=== PATIENT | female | born 1960 | race Caucasian/White ===

== ENCOUNTER 2016-06-01 13:20 | Emergency (ER) | payer OTHER ==
[~2016-06-01] VITALS: Ht 170.2 cm; Wt 99.3 kg
[~2016-06-01 13:20] MED LIST: AMLO5TAB4 PO; AZAT50TA10 PO; GABA-586 PO; GLIM4TAB PO; HYDR-2666 PO; INSU100C SQ; INSU100I17 SQ; INSU100I18 SQ; INSU100V13 SQ; METF10002 PO; METO25PO2 MC; METO25TA4 PO; OMEP20CA5 PO; OXYC-323 PO; PROAIR HFA8.5 GM IH; SAXA5TAB PO; VALS160T3 PO
[2016-06-01 13:37] VITALS: BP 150/76
--- NOTE | 2016-06-01 13:50 | RAD ---
Chest, 2 views, 06/01/2016: History: Cough and dizziness Comparison is made to a study from 01/15/2014. The heart size and pulmonary vascularity are normal. No pulmonary infiltrates are seen. There is no evidence of pleural fluid. There is a minimal thoracic scoliosis. A surgical plate and screws is evident in the lower cervical spine. IMPRESSION: No acute cardiopulmonary abnormality is detected.
[2016-06-01] MEDS ORDERED: HYDR115S2 PO (14:23)
--- NOTE | 2016-06-01 14:23 | PHYS DOC ---
Past Medical History Past Medical History: Asthma, Diabetes-Type II, Hypertension, Other Additional Past Medical Histor: lupus Past Surgical History: Cholecystectomy, Tonsillectomy, Other Additional Past Surgical Histo: Spinal fusion C 4-6 Alcohol Use: None Drug Use: None Adult General Chief Complaint Chief Complaint: COUGH HPI HPI Patient is a 55 year old female with history of hypertension,asthma and diabetes type 2 who presents with a productive cough for the last 1 week. Patient states she was started on Levaquin by the PCP on Tuesday last week and she is still taking it. Patient states the PCP could not put her on any prednisone because of her diabetes. She is using her inhaler. She states she has taken Tussionex before with good relief for this cough. Patient denies any fever. Review of Systems Review of Systems Constitutional: Denies fever or chills [] Eyes: Denies change in visual acuity, redness, or eye pain [] HENT: Denies nasal congestion or sore throat [] Respiratory: Productive cough Cardiovascular: No additional information not addressed in HPI [] GI: Denies abdominal pain, nausea, vomiting, bloody stools or diarrhea [] : Denies dysuria or hematuria [] Musculoskeletal: Denies back pain or joint pain [] Integument: Denies rash or skin lesions [] Neurologic: Denies headache, focal weakness or sensory changes [] Endocrine: Denies polyuria or polydipsia [] Current Medications Current Medications Current Medications Medications (Trade) Dose Ordered Sig/Jacinto Start Time Stop Time Status Last Admin Dose Admin Acetaminophen/ Hydrocodone Bitart (Lortab 5/325) 1 tab 1X ONCE 06/01/16 14:30 06/01/16 14:31 Cancel Albuterol/ Ipratropium (Duoneb) 3 ml 1X ONCE 06/01/16 14:30 06/01/16 14:31 Allergies Allergies Allergies Coded Allergies Type Severity Reaction Last Updated Verified lisinopril Allergy Severe WELTS 03/11/14 No Sulfa (Sulfonamide Antibiotics) Allergy Intermediate rash 03/11/14 Yes adhesive Allergy Intermediate skin sensitivity 03/11/14 Yes tetracycline Allergy Intermediate rash 03/11/14 Yes amoxicillin trihydrate Adverse Reaction Intermediate vomiting 03/11/14 Yes potassium clavulanate Adverse Reaction Intermediate vomiting 03/11/14 Yes Uncoded Allergies Type Severity Reaction Last Updated Verified PERFUMES Allergy Intermediate 03/14/14 Physical Exam Physical Exam Constitutional: Well developed, well nourished, no acute distress, non-toxic appearance. [] HENT: Normocephalic, atraumatic, bilateral external ears normal, oropharynx moist, no oral exudates, nose normal. [] Eyes: PERRLA, EOMI, conjunctiva normal, no discharge. [] Neck: Normal range of motion, no tenderness, supple, no stridor. [] Cardiovascular:Heart rate regular rhythm, no murmur [] Lungs & Thorax: Bilateral breath sounds clear to auscultation [] Abdomen: Bowel sounds normal, soft, no tenderness, no masses, no pulsatile masses. [] Skin: Warm, dry, no erythema, no rash. [] Back: No tenderness, no CVA tenderness. [] Extremities: No tenderness, no cyanosis, no clubbing, ROM intact, no edema. [] Neurologic: Alert and oriented X 3, normal motor function, normal sensory function, no focal deficits noted. [] Psychologic: Affect normal, judgement normal, mood normal. [] Current Patient Data Vital Signs Vital Signs Date Time Temp Pulse Resp B/P Pulse Ox O2 Delivery O2 Flow Rate FiO2 06/01/16 13:37 98.2 100 18 96 Room Air 98.2 EKG EKG [] Radiology/Procedures Radiology/Procedures [] Course & Med Decision Making Course & Med Decision Making Pertinent Labs and Imaging studies reviewed. (See chart for details) Patient is in the ED with a productive cough for 1 week. Chest x-ray interpreted by radiologist is negative for any acute findings. This patient is already on Levaquin which i encouraged her to continue taking. She is already receiving breathing treatments at home which i encouraged her to continue. She could not be put on prednisone because she has diabetes. I did put her on Tussionex which she has taken before with relief of her cough. She is follow-up with her own PCP in the next 3-7 days. She is to return to the ED if symptoms worsen. Dragon Disclaimer Dragon Disclaimer This electronic medical record was generated, in whole or in part, using a voice recognition dictation system. Departure Departure Impression: Primary Impression: Acute bronchitis Disposition: 01 HOME, SELF-CARE Condition: STABLE Referrals: JUNG SOLORZANO MD (PCP) Follow-up with your own doctor in 3-7 days Patient Instructions: Acute Bronchitis, [id number] Additional Instructions: You were seen for acute bronchitis, continue taking Levaquin until it is finished. Continue the breathing treatments. Take the prescribed cough syrup as needed. Come back to the emergency room at any point symptoms worsen. Scripts Hydrocodone/Chlorphen Polis (Tussionex Pennkinetic Susp)480 Ml Spring.er.12h5 Ml PO BID #100 ML Prov:AGGIE FREEMAN APRN 06/01/16 Problem Qualifiers Primary Impression: Acute bronchitis Bronchitis organism: unspecified organism Qualified Code: J20.9 - Acute bronchitis, unspecified AGGIE FREEMAN CYCLE SPECIALIST Jun 01, 2016 14:23
[2016-06-01] MEDS ORDERED: IPRATRPIUM/ALBUTEROL 0.5/2.5MG 3 ML NEBU. NEB ONE (14:30)
[2016-06-01] MEDS ORDERED: HYDROCODONE/APAP 5/325MG TABLET. PO ONE (14:30)
== END 2016-06-01 14:44 | disposition home or self-care (01) ==
LOC: ER 13:20
DX: J20.9 Acute bronchitis, unspecified (principal); I10 Essential (primary) hypertension; J45.909 Unspecified asthma, uncomplicated; E11.9 Type 2 diabetes mellitus without complications; Z88.0 Allergy status to penicillin; Z88.1 Allergy status to other antibiotic agents; Z88.2 Allergy status to sulfonamides; Z88.8 Allergy status to other drugs, medicaments and biological substances; Z91.048 Other nonmedicinal substance allergy status
CPT/HCPCS: 71020; 94250; 94640; 99284; J7620

== ENCOUNTER → 2016-08-17 | Outpatient (CLI) | payer OTHER ==
[~2016-08-17] MED LIST changes: +HYDR115S2 PO
[2016-08-17 13:49] LABS: BASO # 0.1 x10^3/uL (0.0-0.2); BASO % 2 % (0-3); EOS % 7 % (0-3); HEMATOCRIT 38.5 % (36.0-47.0); HEMOGLOBIN 12.3 g/dL (12.0-15.5); LYMPH # 1.4 x10^3/uL (1.0-4.8); LYMPH % 14 % (24-48); MEAN CORPUSCULAR HEMOGLOBIN 25 pg (25-35); MEAN CORPUSCULAR HGB CONC 32 g/dL (31-37); MEAN CORPUSCULAR VOLUME 78 fL (79-100); MONO % 8 % (0-9); NEUT % 69 % (31-73); PLATELET COUNT 459 x10^3/uL (140-400); RED BLOOD COUNT 4.92 x10^6/uL (3.50-5.40); RED CELL DISTRIBUTION WIDTH 17.5 % (11.5-14.5); WHITE BLOOD COUNT 9.9 x10^3/uL (4.0-11.0)
[2016-08-17 17:08] LABS: ALBUMIN 3.5 g/dL (3.4-5.0); ALBUMIN/GLOBULIN RATIO 0.8 (1.0-1.7); CALCIUM 9.1 mg/dL (8.5-10.1); CREATININE 0.8 mg/dL (0.6-1.0); GFR 74.5; TOTAL BILIRUBIN 0.3 mg/dL (0.2-1.0); TOTAL PROTEIN 7.8 g/dL (6.4-8.2)
== END | disposition home or self-care (01) ==
LOC: LAB 12:58
PROVIDERS: ATTEND Internal Medicine Rheumatology
DX: M79.3 Panniculitis, unspecified (principal)
CPT/HCPCS: 36415; 80053; 85027

== ENCOUNTER → 2016-08-17 | Outpatient (CLI) | payer OTHER | END | disposition home or self-care (01) | LOC: LAB 11:22 | PROVIDERS: ATTEND Clinical Nurse Specialist Medical-Surgical | DX: E11.65 Type 2 diabetes mellitus with hyperglycemia (principal) | CPT/HCPCS: 36415; 84443 ==

== ENCOUNTER → 2016-09-29 | Outpatient (CLI) | payer OTHER ==
[~2016-09-29] MED LIST changes: +METF-620 PO; -METF10002 PO
[2016-09-29 10:54] LABS: FREE T4 0.92 ng/dL (0.76-1.46)
[2016-09-29 19:17] LABS: THYROPEROXIDASE ANTIBODY 76 IU/mL (0-34)
== END | disposition home or self-care (01) ==
LOC: LAB 09:49
PROVIDERS: ATTEND Internal Medicine Endocrinology, Diabetes & Metabolism
DX: R94.6 Abnormal results of thyroid function studies (principal)
CPT/HCPCS: 36415; 84432; 84439; 84443; 86376

== ENCOUNTER 2016-11-11 15:42 | Emergency (ER) | payer OTHER ==
[~2016-11-11] VITALS: Ht 172.7 cm; Wt 99.3 kg
[~2016-11-11 15:42] MED LIST changes: -AZAT50TA10 PO; +AZAT50TA20 PO; -HYDR-2666 PO; +HYDR-2758 PO
--- NOTE | 2016-11-11 16:07 | PHYS DOC ---
Past Medical History Past Medical History: Asthma, Diabetes-Type II, Hypertension, Other Additional Past Medical Histor: lupus Past Surgical History: Cholecystectomy, Tonsillectomy, Other Additional Past Surgical Histo: Spinal fusion C 4-6 Alcohol Use: None Drug Use: None Adult General Chief Complaint Chief Complaint: FLANK PAIN [facility] HPI Patient is a 55 year old female who presents with 2-3 week history of right flank pain gradual onset intermittent mild severity radiating to the right groin , no nausea or vomiting, occasional diarrhea, bloody patient attributes that to metformin. Denies chest pain shortness of breath or fever. Denies any dysuria or frequency. Does report a history of lupus nephritis however no history of renal stones. Review of Systems Review of Systems Constitutional: Denies fever or chills [] Eyes: Denies change in visual acuity, redness, or eye pain [] HENT: Denies nasal congestion or sore throat [] Respiratory: Denies cough or shortness of breath [] Cardiovascular: No additional information not addressed in HPI [] GI: Denies abdominal pain, nausea, vomiting, bloody stools or diarrhea [] : Denies dysuria or hematuria [] Musculoskeletal: Denies back pain or joint pain [] Integument: Denies rash or skin lesions [] Neurologic: Denies headache, focal weakness or sensory changes [] Endocrine: Denies polyuria or polydipsia [ All systems negative except noted in the history of present illness.] Current Medications Current Medications Current Medications Medications (Trade) Dose Ordered Sig/Jacinto Start Time Stop Time Status Last Admin Dose Admin Sodium Chloride 500 ml @ 500 mls/hr 1X ONCE 11/11/16 16:15 11/11/16 17:14 DC 11/11/16 16:30 500 MLS/HR Allergies Allergies Allergies Coded Allergies Type Severity Reaction Last Updated Verified lisinopril Allergy Severe WELTS 03/11/14 No Sulfa (Sulfonamide Antibiotics) Allergy Intermediate rash 03/11/14 Yes adhesive Allergy Intermediate skin sensitivity 03/11/14 Yes tetracycline Allergy Intermediate rash 03/11/14 Yes amoxicillin trihydrate Adverse Reaction Intermediate vomiting 03/11/14 Yes potassium clavulanate Adverse Reaction Intermediate vomiting 03/11/14 Yes Uncoded Allergies Type Severity Reaction Last Updated Verified PERFUMES Allergy Intermediate 03/14/14 Physical Exam Physical Exam Constitutional: Well developed, well nourished, no acute distress, non-toxic appearance. [] HENT: Normocephalic, atraumatic, bilateral external ears normal, oropharynx moist, no oral exudates, nose normal. [] Eyes: PERRLA, EOMI, conjunctiva normal, no discharge. [] Neck: Normal range of motion, no tenderness, supple, no stridor. [] Cardiovascular:Heart rate regular rhythm, no murmur [] Lungs & Thorax: Bilateral breath sounds clear to auscultation [] Abdomen: Bowel sounds normal, soft, no tenderness, no masses, no pulsatile masses. [] Skin: Warm, dry, no erythema, no rash. [] Back: No tenderness, no CVA tenderness. [] Extremities: No tenderness, no cyanosis, no clubbing, ROM intact, no edema. [] Neurologic: Alert and oriented X 3, normal motor function, normal sensory function, no focal deficits noted. [] Psychologic: Affect normal, judgement normal, mood normal. [] Current Patient Data Vital Signs Vital Signs Date Time Temp Pulse Resp B/P (MAP) Pulse Ox O2 Delivery O2 Flow Rate FiO2 11/11/16 16:00 98.3 94 20 143/84 (103) 96 Room Air 98.3 Lab Values Laboratory Tests Test 11/11/16 15:50 11/11/16 16:05 Urine Color Yellow Urine Clarity Clear Urine pH 5.5 Urine Specific [place] 1.020 Urine Protein Negative mg/dL (NEG-TRACE) Urine Glucose (UA) Negative mg/dL (NEG) Urine Ketones (Stick) Negative mg/dL (NEG) Urine Blood Negative (NEG) Urine Nitrite Negative (NEG) Urine Bilirubin Negative (NEG) Urine Urobilinogen Dipstick 0.2 mg/dL (0.2 mg/dL) Urine Leukocyte Esterase Small (NEG) Urine RBC 0 /HPF (0-2) Urine WBC 5-10 /HPF (0-4) Urine Squamous Epithelial Cells Occ /LPF Urine Bacteria Moderate /HPF (0-FEW) Urine Mucus Mod /LPF White Blood Count 10.2 x10^3/uL (4.0-11.0) Red Blood Count 5.14 x10^6/uL (3.50-5.40) Hemoglobin 12.7 g/dL (12.0-15.5) Hematocrit 39.3 % (36.0-47.0) Mean Corpuscular Volume 76 fL (79-100) L Mean Corpuscular Hemoglobin 25 pg (25-35) Mean Corpuscular Hemoglobin Concent 32 g/dL (31-37) Red Cell Distribution Width 17.0 % (11.5-14.5) H Platelet Count 490 x10^3/uL (140-400) H Neutrophils (%) (Auto) 74 % (31-73) H Lymphocytes (%) (Auto) 12 % (24-48) L Monocytes (%) (Auto) 7 % (0-9) Eosinophils (%) (Auto) 6 % (0-3) H Basophils (%) (Auto) 0 % (0-3) Neutrophils # (Auto) 7.6 x10^3uL (1.8-7.7) Lymphocytes # (Auto) 1.3 x10^3/uL (1.0-4.8) Monocytes # (Auto) 0.7 x10^3/uL (0.0-1.1) Eosinophils # (Auto) 0.7 x10^3/uL (0.0-0.7) Basophils # (Auto) 0.0 x10^3/uL (0.0-0.2) Sodium Level 138 mmol/L (136-145) Potassium Level 3.6 mmol/L (3.5-5.1) Chloride Level 103 mmol/L (98-107) Carbon Dioxide Level 28 mmol/L (21-32) Anion Gap 7 (6-14) Blood Urea Nitrogen 8 mg/dL (7-20) Creatinine 0.8 mg/dL (0.6-1.0) Estimated GFR (Cockcroft-Gault) 74.5 BUN/Creatinine Ratio 10 (6-20) Glucose Level 151 mg/dL (70-99) H Calcium Level 9.3 mg/dL (8.5-10.1) Total Bilirubin 0.2 mg/dL (0.2-1.0) Aspartate Amino Transferase (AST) 27 U/L (15-37) Alanine Aminotransferase (ALT) 45 U/L (14-59) Alkaline Phosphatase 117 U/L (46-116) H Total Protein 8.3 g/dL (6.4-8.2) H Albumin 3.6 g/dL (3.4-5.0) Albumin/Globulin Ratio 0.8 (1.0-1.7) L Laboratory Tests 11/11/16 16:05 Laboratory Tests 11/11/16 16:05 EKG EKG [] Radiology/Procedures Radiology/Procedures CT scan abdomen and pelvis [negative for acute abnormality radiology report reviewed] Course & Med Decision Making Course & Med Decision Making Pertinent Labs and Imaging studies reviewed. (See chart for details) Plan of care will be IV fluids checking labs, UA, and a CT scan abdomen and pelvis to exclude renal pathology including kidney stones. UA consistent with UTI kidney function okay but sugar well controlled CT scan unremarkable patient stable for dismissal with antibiotics for UTI. Discussed findings with the patient she is agreeable happy to go home. [] Dragon Disclaimer Dragon Disclaimer This electronic medical record was generated, in whole or in part, using a voice recognition dictation system. Departure Departure Referrals: JUNG SOLORZANO MD (PCP) IVY ADAME MD Nov 11, 2016 16:07
[2016-11-11 16:15] LABS: BASO % 0 % (0-3); EOS % 6 % (0-3); HEMATOCRIT 39.3 % (36.0-47.0); HEMOGLOBIN 12.7 g/dL (12.0-15.5); LYMPH # 1.3 x10^3/uL (1.0-4.8); LYMPH % 12 % (24-48); MEAN CORPUSCULAR HEMOGLOBIN 25 pg (25-35); MEAN CORPUSCULAR HGB CONC 32 g/dL (31-37); MEAN CORPUSCULAR VOLUME 76 fL (79-100); MONO % 7 % (0-9); NEUT % 74 % (31-73); PLATELET COUNT 490 x10^3/uL (140-400); RED BLOOD COUNT 5.14 x10^6/uL (3.50-5.40); WHITE BLOOD COUNT 10.2 x10^3/uL (4.0-11.0)
[2016-11-11] MEDS ORDERED: IV NORMAL SALINE 500ML BAG 500 ML IV ONE (16:15)
[2016-11-11 16:18] LABS: BILIRUBIN,URINE NEGATIVE (NEG); GLUCOSE,URINE NEGATIVE (NEG); NITRITE,URINE NEGATIVE (NEG); PH,URINE 5.5; PROTEIN,URINE NEGATIVE (NEG-TRACE); UROBILINOGEN,URINE 0.2 mg/dL (0.2 mg/dL)
[2016-11-11 16:30] LABS: CALCIUM 9.3 mg/dL (8.5-10.1); CREATININE 0.8 mg/dL (0.6-1.0); GFR 74.5; POTASSIUM 3.6 mmol/L (3.5-5.1)
[2016-11-11 16:31] LABS: BACTERIA,URINE MODERATE /HPF (0-FEW); RBC,URINE 0 /HPF (0-2); SQUAMOUS EPITHELIAL CELL,UR OCC /LPF
[2016-11-11 16:36] LABS: ALBUMIN 3.6 g/dL (3.4-5.0); ALBUMIN/GLOBULIN RATIO 0.8 (1.0-1.7); TOTAL BILIRUBIN 0.2 mg/dL (0.2-1.0); TOTAL PROTEIN 8.3 g/dL (6.4-8.2)
--- NOTE | 2016-11-11 16:55 | RAD ---
CT scan of the abdomen and pelvis without contrast 11/11/2016 Clinical history: Severe right flank pain for 2 to 3 weeks. Technique: Unenhanced, contiguous, 2 mm axial sections were obtained through the abdomen and pelvis. Findings: Comparison study is dated 03/06/2009. Images through the lung bases demonstrate a moderate-sized sliding hiatal hernia. The liver parenchyma has a decreased attenuation consistent with mild fatty infiltration. The liver is mildly enlarged measuring 20 cm in length. The spleen, pancreas and adrenal glands are within normal limits. No renal or ureteral calculus is seen. There is no evidence of obstruction of either collecting system. Mild to moderate scattered atherosclerotic plaque formation is seen involving the abdominal aorta. The abdominal aorta tapers normally. Surgical clips are seen within the gallbladder fossa consistent with a cholecystectomy. No free fluid or free air is seen within the abdomen. There is no evidence of bowel obstruction. The appendix is well visualized and is within normal limits. Slightly prominent retroperitoneal lymph nodes are seen which have decreased in size and number since the previous examination. Images through the pelvis demonstrate the urinary bladder distended with urine. Scattered diverticula are seen involving the sigmoid colon. No inflammatory changes are seen in the adjacent fat. No free fluid is seen. Minimal S shaped curvature of the thoracolumbar spine is seen. Degenerative changes are seen involving the thoracic and lumbar spine and both hips. Impression: No acute abnormality is seen.
[2016-11-11] MEDS ORDERED: NITR100C62 PO (17:21)
[2016-11-11 17:30] VITALS: BP 107/75
== END 2016-11-11 17:30 | disposition home or self-care (01) ==
LOC: ER 15:42
DX: R10.30 Lower abdominal pain, unspecified (principal); R19.7 Diarrhea, unspecified; I10 Essential (primary) hypertension; J45.909 Unspecified asthma, uncomplicated; E11.9 Type 2 diabetes mellitus without complications; M32.9 Systemic lupus erythematosus, unspecified; Z98.1 Arthrodesis status; Z90.49 Acquired absence of other specified parts of digestive tract; Z88.2 Allergy status to sulfonamides; Z88.1 Allergy status to other antibiotic agents; Z88.8 Allergy status to other drugs, medicaments and biological substances; Z91.048 Other nonmedicinal substance allergy status
CPT/HCPCS: 36415; 74176; 80053; 81001; 85027; 87086; 96360; 99285; J7040

== ENCOUNTER 2017-02-01 10:16 | Emergency (ER) | payer OTHER ==
[~2017-02-01] VITALS: Ht 170.2 cm; Wt 99.3 kg
[~2017-02-01 10:16] MED LIST changes: +NITR100C62 PO
[2017-02-01 10:47] VITALS: BP 121/83
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
[2017-02-01] MEDS ORDERED: IPRATRPIUM/ALBUTEROL 0.5/2.5MG 3 ML NEBU. NEB ONE (11:45)
[2017-02-01] MEDS ORDERED: predniSONE 10 MG TABLET PO ONE (12:30)
[2017-02-01] MEDS ORDERED: ALBUTEROL SULFATE 2.5 MG/3 ML NEBU. NEB ONE (12:30)
[2017-02-01] MEDS ORDERED: PRED20TA PO (13:29)
[2017-02-01] MEDS ORDERED: HYDR5SUS PO (13:29)
[2017-02-01] MEDS ORDERED: AZIT250T PO (13:29)
== END 2017-02-01 13:37 | disposition home or self-care (01) ==
LOC: ER 10:16
DX: J20.9 Acute bronchitis, unspecified (principal); J32.9 Chronic sinusitis, unspecified; Z88.2 Allergy status to sulfonamides; Z88.8 Allergy status to other drugs, medicaments and biological substances; Z88.1 Allergy status to other antibiotic agents; Z91.048 Other nonmedicinal substance allergy status; Z91.09 Other allergy status, other than to drugs and biological substances; J45.909 Unspecified asthma, uncomplicated; E11.9 Type 2 diabetes mellitus without complications; I10 Essential (primary) hypertension; E03.9 Hypothyroidism, unspecified
CPT/HCPCS: 94250; 94640; 99284; J7512; J7613; J7620

== ENCOUNTER → 2018-01-06 | Outpatient (CLI) | payer OTHER ==
[2018-01-06 10:24] LABS: THYROID STIM HORMONE (TSH) 3.657 uIU/mL (0.358-3.74)
[2018-01-06 10:24] LABS: FREE T4 1.02 ng/dL (0.76-1.46)
== END | disposition home or self-care (01) ==
LOC: LAB 08:50
DX: E03.9 Hypothyroidism, unspecified (principal); I10 Essential (primary) hypertension; E11.9 Type 2 diabetes mellitus without complications; E78.5 Hyperlipidemia, unspecified; Z79.4 Long term (current) use of insulin; Z87.39 Personal history of other diseases of the musculoskeletal system and connective tissue; Z90.49 Acquired absence of other specified parts of digestive tract; Z88.0 Allergy status to penicillin; Z88.1 Allergy status to other antibiotic agents; Z88.2 Allergy status to sulfonamides
CPT/HCPCS: 36415; 84439; 84443

== ENCOUNTER → 2018-04-27 | Outpatient (CLI) | payer OTHER ==
[~2018-04-27] MED LIST changes: +AZIT250T PO; -HYDR-2758 PO; +HYDR-2761 PO; +HYDR5SUS PO; -METF-620 PO; +METF10007 PO; -OXYC-323 PO; +OXYC1TAB15 PO; +PRED20TA PO
[2018-04-27 16:00] LABS: BASO # 0.3 x10^3/uL (0.0-0.2); BASO % 3 % (0-3); EOS # 0.7 x10^3/uL (0.0-0.7); EOS % 6 % (0-3); HEMOGLOBIN 13.9 g/dL (12.0-15.5); LYMPH # 1.6 x10^3/uL (1.0-4.8); LYMPH % 14 % (24-48); MEAN CORPUSCULAR HEMOGLOBIN 27 pg (25-35); MEAN CORPUSCULAR HGB CONC 33 g/dL (31-37); MEAN CORPUSCULAR VOLUME 80 fL (79-100); MONO # 0.8 x10^3/uL (0.0-1.1); MONO % 7 % (0-9); NEUT # 8.5 x10^3uL (1.8-7.7); NEUT % 71 % (31-73); PLATELET COUNT 575 x10^3/uL (140-400); RED BLOOD COUNT 5.24 x10^6/uL (3.50-5.40); RED CELL DISTRIBUTION WIDTH 16.6 % (11.5-14.5); WHITE BLOOD COUNT 11.9 x10^3/uL (4.0-11.0)
[2018-04-27 16:15] LABS: ALBUMIN 3.7 g/dL (3.4-5.0); ALBUMIN/GLOBULIN RATIO 0.8 (1.0-1.7); CALCIUM 9.3 mg/dL (8.5-10.1); CREATININE 1.2 mg/dL (0.6-1.0); GFR 46.3; POTASSIUM 4.2 mmol/L (3.5-5.1); TOTAL BILIRUBIN 0.2 mg/dL (0.2-1.0); TOTAL PROTEIN 8.3 g/dL (6.4-8.2)
[2018-04-27 16:20] LABS: CHOLESTEROL/HDL RATIO 5.1
[2018-04-28 00:11] LABS: HEMOGLOBIN A1C 8.2 % (4.8-5.6)
== END | disposition home or self-care (01) ==
LOC: LAB 15:31
PROVIDERS: ATTEND Internal Medicine Endocrinology, Diabetes & Metabolism
DX: E11.9 Type 2 diabetes mellitus without complications (principal)
CPT/HCPCS: 36415; 80053; 80061; 83036; 84443; 84681; 85025; 85651

== ENCOUNTER 2018-07-07 11:40 | Day surgery (SDC) | payer OTHER ==
[~2018-07-07 11:40] MED LIST changes: +ALBU2.5V8 IH; +CHONDROIT-SOD-HYALURONATE KIT. ONE; +CIPROFLOXACIN 0.3% OPHTH SOLUTION 5ML BOTTLE. OS ONE; -GABA-586 PO; +GABA300C18 PO; +HYDROmorphone 2 MG/ML VIAL IV PRN; +INSU100I13 SQ; +IV RINGERS,LACTATED 1000ML 1,000 ML IV SCH; +LIDOCAINE 1% PF 2 ML VIAL. ID PRN; +LIDOCAINE 1% PF 2 ML VIAL. ONE; +LIDOCAINE 2% JELLY 6ML IN APPLICATOR. MM SCH; +METO100T7 PO; +MORPHINE SULFATE 4 MG/ML VIAL. IV PRN; +NEO/POLYMYX/DEXAMETH OPHTH OINTMENT 3.5GM TUBE. ONE; +ONDANSETRON PF 4 MG/2 ML VIAL. IV PRN; +PRAV40TA2 PO; -PROAIR HFA8.5 GM IH; +PROCHLORPERAZINE 10 MG/2 ML VIAL. IV PRN; +PROPARACAINE 0.5% OPHTH SOLUTION 15ML BOTTLE. OS ONE; +fentaNYL PF VIAL 100 MCG/2 ML VIAL IV PRN
[2018-07-07] MEDS: CYCLOPENTOLATE 1% OPTH SOLUTION 2ML BOTTLE. OS SCH ×3 (12:41→12:51)
[2018-07-07] MEDS: PHENYLEPHRINE 10% OPHTH SOLUTION 5ML BOTTLE. OS SCH ×3 (12:41→12:51)
[2018-07-07] MEDS ORDERED: MIDAZOLAM HCL/PF 2 MG/2 ML VIAL. ONE (13:38)
[2018-07-07] MEDS ORDERED: MIDAZOLAM HCL/PF 2 MG/2 ML VIAL. IV ONE (13:45)
[2018-07-07 14:27] VITALS: BP 130/81
--- NOTE | 2018-07-07 15:12 | OP ---
DATE OF SURGERY: 07/07/2018 PREOPERATIVE DIAGNOSIS: Presenile cataract, left eye. POSTOPERATIVE DIAGNOSIS: Presenile cataract, left eye. PROCEDURE: Phacoemulsification with posterior chamber lens implant, left eye. ANESTHESIA: Topical with MAC. DESCRIPTION OF PROCEDURE: The patient's dilating and anesthetic drops were placed in the outpatient holding area and the [place] balloon cuff were used for about 15 minutes. The patient was then brought to the OR and positioned and the left eye was prepped and draped in the usual sterile manner for an intraocular procedure. A lid speculum was placed between the eyelids and the operating microscope was brought into position. A paracentesis incision was made inferior temporally and 1% lidocaine injected in the anterior chamber. This was followed by an injection of Viscoat and then the primary 2.4 mm incision was made temporally. A capsulorrhexis was made about the dilated pupillary border and the lens nucleus hydrodissected. The lens nucleus was then easily phacoemulsified using the phaco hand piece. The cortical cleanup was done with the I/A handpiece. Provisc was then used to insufflate the bag and form the anterior chamber and a posterior chamber lens inserted into the bag without difficulty. The Provisc was aspirated with the I/A handpiece and the eye was then pressurized and the primary incision hydrated with a 30-gauge cannula. The wound was checked for leaks and there were none. The speculum was removed and Maxitrol ointment instilled in the conjunctival sac and the eye was shielded. The patient was taken to the recovery room in satisfactory condition. There were no complications. I will talk to the patient tomorrow by phone and see her in 3 days for followup. K NELL DOUGLAS MD DR: STEPHON/olivia JOB#: [id number] / [id number]
== END 2018-07-07 15:16 | disposition home or self-care (01) ==
LOC: SURG 11:40
PROVIDERS: ATTEND Ophthalmology
DX: H26.01 Infantile and juvenile cortical, lamellar, or zonular cataract (principal); Z88.2 Allergy status to sulfonamides; Z88.1 Allergy status to other antibiotic agents; Z88.8 Allergy status to other drugs, medicaments and biological substances; Z98.890 Other specified postprocedural states
CPT/HCPCS: 66984; 82962; C1780; J0171; J2250

== ENCOUNTER 2018-07-21 11:50 | Day surgery (SDC) | payer OTHER ==
[~2018-07-21 11:50] MED LIST changes: +CIPROFLOXACIN 0.3% OPHTH SOLUTION 5ML BOTTLE. OD ONE; -CIPROFLOXACIN 0.3% OPHTH SOLUTION 5ML BOTTLE. OS ONE; +PROPARACAINE 0.5% OPHTH SOLUTION 15ML BOTTLE. OD ONE; -PROPARACAINE 0.5% OPHTH SOLUTION 15ML BOTTLE. OS ONE
[2018-07-21] MEDS: PHENYLEPHRINE 10% OPHTH SOLUTION 5ML BOTTLE. OD SCH ×3 (12:46→12:56)
[2018-07-21] MEDS: CYCLOPENTOLATE 1% OPTH SOLUTION 2ML BOTTLE. OD SCH ×3 (12:59→13:11)
[2018-07-21] MEDS ORDERED: MIDAZOLAM HCL/PF 2 MG/2 ML VIAL. ONE (13:26)
[2018-07-21 14:30] VITALS: BP 136/78
--- NOTE | 2018-07-21 15:23 | OP ---
DATE OF SURGERY: 07/21/2018 PREOPERATIVE DIAGNOSIS: Senile cataract, right eye. POSTOPERATIVE DIAGNOSIS: Senile cataract, right eye. PROCEDURE: Phacoemulsification with posterior chamber lens implant, right eye. ANESTHESIA: Topical with MAC. DESCRIPTION OF PROCEDURE: The patient's dilating and anesthetic drops were applied in the outpatient department and the [place] balloon cuff was used for about 10-15 minutes. The patient was then brought to the operating room, positioned on the table and the right eye was prepped and draped in the usual sterile manner for an intraocular procedure. The operating microscope was brought into position and a paracentesis incision was made superotemporally. A 1% lidocaine was injected into the anterior chamber followed by Viscoat. The primary 2.4-mm incision was made temporally and a capsulorrhexis performed without difficulty. The lens nucleus was hydrodissected and then phacoemulsified using the phaco handpiece. The cortical material was cleaned up with the I/A handpiece. Provisc was used to insufflate the bag and a posterior chamber lens placed into the bag without difficulty. The viscoelastic was aspirated with the I/A handpiece and the wound was hydrated and the eye pressurized. The wound was checked for leaks and there were none. The speculum and drape were removed and Maxitrol ointment was instilled in the conjunctival sac and the eye was shielded. The patient was taken to the recovery room in satisfactory condition. There were no complications. I will see the patient in 3 days in my office. K NELL DOUGLAS MD DR: STEPHON/olivia JOB#: [id number] / [id number]
== END 2018-07-21 14:47 | disposition home or self-care (01) ==
LOC: SURG 11:50
PROVIDERS: ATTEND Ophthalmology
DX: E11.36 Type 2 diabetes mellitus with diabetic cataract (principal); H25.11 Age-related nuclear cataract, right eye; I10 Essential (primary) hypertension; E03.9 Hypothyroidism, unspecified; J45.909 Unspecified asthma, uncomplicated; Z98.890 Other specified postprocedural states; Z72.89 Other problems related to lifestyle; Z79.4 Long term (current) use of insulin; Z79.899 Other long term (current) drug therapy; Z88.2 Allergy status to sulfonamides; Z88.1 Allergy status to other antibiotic agents; Z88.8 Allergy status to other drugs, medicaments and biological substances; Z98.42 Cataract extraction status, left eye; Z96.1 Presence of intraocular lens
CPT/HCPCS: 66984; 82962; C1780; J0171; J2250

== ENCOUNTER 2019-06-25 15:14 | Inpatient (IN) | payer OTHER ==
[~2019-06-25] VITALS: Ht 167.6 cm; Wt 97.5 kg
[~2019-06-25 15:14] MED LIST changes: -CHONDROIT-SOD-HYALURONATE KIT. ONE; -CIPROFLOXACIN 0.3% OPHTH SOLUTION 5ML BOTTLE. OD ONE; -HYDROmorphone 2 MG/ML VIAL IV PRN; -IV RINGERS,LACTATED 1000ML 1,000 ML IV SCH; -LIDOCAINE 1% PF 2 ML VIAL. ID PRN; -LIDOCAINE 1% PF 2 ML VIAL. ONE; -LIDOCAINE 2% JELLY 6ML IN APPLICATOR. MM SCH; -MORPHINE SULFATE 4 MG/ML VIAL. IV PRN; -NEO/POLYMYX/DEXAMETH OPHTH OINTMENT 3.5GM TUBE. ONE; -ONDANSETRON PF 4 MG/2 ML VIAL. IV PRN; -PROCHLORPERAZINE 10 MG/2 ML VIAL. IV PRN; -PROPARACAINE 0.5% OPHTH SOLUTION 15ML BOTTLE. OD ONE; -fentaNYL PF VIAL 100 MCG/2 ML VIAL IV PRN
[2019-06-25] MEDS ORDERED: IV NORMAL SALINE 1000ML BAG 1,000 ML IV SCH (17:27)
[2019-06-25 17:30] LABS: BILIRUBIN,URINE NEGATIVE (NEG); CLARITY,URINE CLEAR; COLOR,URINE YELLOW; NITRITE,URINE NEGATIVE (NEG); PH,URINE 6.5; PROTEIN,URINE NEGATIVE (NEG-TRACE); UROBILINOGEN,URINE 0.2 mg/dL (0.2 mg/dL)
[2019-06-25] MEDS ORDERED: fentaNYL PF VIAL 100 MCG/2 ML VIAL IV ONE (17:30)
--- NOTE | 2019-06-25 17:33 | PHYS DOC ---
Past Medical History Past Medical History: Asthma, Diabetes-Type II, Hypertension, Hypothyroid, Other Additional Past Medical Histor: lupus (MARCUS SHIELDS APRN) Past Surgical History: Cholecystectomy, Oophorectomy, Tonsillectomy, Other Additional Past Surgical Histo: Spinal fusion C 4-6 (MARCUS SHIELDS APRN) Alcohol Use: Rarely Drug Use: None (MARCUS SHIELDS APRN) Adult General Chief Complaint Chief Complaint: FLANK PAIN HPI HPI Patient is a 58 year old Female who presents with bilateral lower Darryl pain and lower back pain 1 week. States is a cramping feeling she rates as 7 out of 10. She was sent over by Dr. Del Toro for evaluation of diverticulitis or a kidney stone. Patient denies nausea, vomiting, fever, chest pain, shortness of air, numbness or tingling, visual changes, weakness, headache, dizziness. She does state about 3 months ago she was eating is out on the tines off of a plastic fork broke off and she swallowed it. She states she does have occasional diarrhea. She denies seeing any blood in her stools. (MARCUS SHIELDS [employer]) Review of Systems Review of Systems GI: abdominal pain, denies nausea, vomiting, bloody stools. + diarrhea [] Musculoskeletal: bilateral lower back pain or joint pain [] All other systems were reviewed and found to be within normal limits, except as documented in this note. (MARCUS SHIELDS APRN) Current Medications Current Medications Current Medications Medications (Trade) Dose Ordered Sig/Jacinto Start Time Stop Time Status Last Admin Dose Admin Fentanyl Citrate (Fentanyl 2ml Vial) 50 mcg 1X ONCE 06/25/19 18:15 06/25/19 18:16 DC 06/25/19 18:56 50 MCG Info (CONTRAST GIVEN -- Rx MONITORING) 1 each PRN DAILY PRN 06/25/19 18:30 06/27/19 15:37 DC Iohexol (Omnipaque 300 Mg/ml) 75 ml 1X ONCE 06/25/19 18:45 06/25/19 18:46 DC 06/25/19 18:35 75 ML Iohexol (Omnipaque 350 Mg/ml) 75 ml 1X ONCE 06/25/19 18:30 06/25/19 18:31 DC Sodium Chloride 1,000 ml @ 1,000 mls/hr 1X ONCE 06/25/19 18:15 06/25/19 19:14 DC 06/25/19 19:29 1,000 MLS/HR (LONNIE RENAE MD) Allergies Allergies Allergies Coded Allergies Type Severity Reaction Last Updated Verified lisinopril Allergy Severe WELTS 07/07/18 No Sulfa (Sulfonamide Antibiotics) Allergy Intermediate rash 07/07/18 Yes adhesive Allergy Intermediate skin sensitivity 07/07/18 Yes tetracycline Allergy Intermediate rash 07/07/18 Yes amoxicillin trihydrate Adverse Reaction Intermediate vomiting 07/07/18 Yes potassium clavulanate Adverse Reaction Intermediate vomiting 07/07/18 Yes Uncoded Allergies Type Severity Reaction Last Updated Verified PERFUMES Allergy Intermediate ASTHMA ATTACK (AND ANY CHEMICALS CLEANING PRODUCTS) 06/05/18 (LONNIE RENAE MD) Physical Exam Physical Exam Constitutional: Well developed, well nourished, no acute distress, non-toxic ap pearance. [] HENT: Normocephalic, atraumatic, bilateral external ears normal, oropharynx moist, no oral exudates, nose normal. [] Eyes: PERRLA, EOMI, conjunctiva normal, no discharge. [] Neck: Normal range of motion, no tenderness, supple, no stridor. [] Cardiovascular:Heart rate regular rhythm, no murmur [] Lungs & Thorax: Bilateral breath sounds clear to auscultation [] Abdomen: Bowel sounds normal, soft, left and right lower tenderness, no masses, no pulsatile masses. [] Skin: Warm, dry, no erythema, no rash. [] Back: No tenderness, no CVA tenderness. [] Extremities: No tenderness, no cyanosis, no clubbing, ROM intact, no edema. [] Neurologic: Alert and oriented X 3, normal motor function, normal sensory function, no focal deficits noted. [] Psychologic: Affect normal, judgement normal, mood normal. [] (MARCUS SHIELDS APRN) Current Patient Data Vital Signs Vital Signs Date Time Temp Pulse Resp B/P (MAP) Pulse Ox O2 Delivery O2 Flow Rate FiO2 06/25/19 19:30 18 95 Room Air 06/25/19 19:25 80 119/83 (95) 06/25/19 16:40 98.7 98.7 (LONNIE RENAE MD) Lab Values Laboratory Tests Test 06/25/19 16:40 06/25/19 17:20 Urine Color Yellow Urine Clarity Clear Urine pH 6.5 Urine Specific [place] 1.015 Urine Protein Negative mg/dL (NEG-TRACE) Urine Glucose (UA) 100 mg/dL (NEG) Urine Ketones (Stick) Negative mg/dL (NEG) Urine Blood Negative (NEG) Urine Nitrite Negative (NEG) Urine Bilirubin Negative (NEG) Urine Urobilinogen Dipstick 0.2 mg/dL (0.2 mg/dL) Urine Leukocyte Esterase Large (NEG) Urine RBC 0 /HPF (0-2) Urine WBC 11-20 /HPF (0-4) Urine Squamous Epithelial Cells Occ /LPF Urine Bacteria Few /HPF (0-FEW) White Blood Count 12.2 x10^3/uL (4.0-11.0) H Red Blood Count 4.72 x10^6/uL (3.50-5.40) Hemoglobin 13.2 g/dL (12.0-15.5) Hematocrit 39.8 % (36.0-47.0) Mean Corpuscular Volume 84 fL (79-100) Mean Corpuscular Hemoglobin 28 pg (25-35) Mean Corpuscular Hemoglobin Concent 33 g/dL (31-37) Red Cell Distribution Width 15.4 % (11.5-14.5) H Platelet Count 523 x10^3/uL (140-400) H Neutrophils (%) (Auto) 78 % (31-73) H Lymphocytes (%) (Auto) 10 % (24-48) L Monocytes (%) (Auto) 7 % (0-9) Eosinophils (%) (Auto) 5 % (0-3) H Basophils (%) (Auto) 0 % (0-3) Neutrophils # (Auto) 9.5 x10^3/uL (1.8-7.7) H Lymphocytes # (Auto) 1.2 x10^3/uL (1.0-4.8) Monocytes # (Auto) 0.8 x10^3/uL (0.0-1.1) Eosinophils # (Auto) 0.6 x10^3/uL (0.0-0.7) Basophils # (Auto) 0.0 x10^3/uL (0.0-0.2) Sodium Level 135 mmol/L (136-145) L Potassium Level 4.1 mmol/L (3.5-5.1) Chloride Level 98 mmol/L (98-107) Carbon Dioxide Level 28 mmol/L (21-32) Anion Gap 9 (6-14) Blood Urea Nitrogen 10 mg/dL (7-20) Creatinine 0.9 mg/dL (0.6-1.0) Estimated GFR (Cockcroft-Gault) 64.3 BUN/Creatinine Ratio 11 (6-20) Glucose Level 284 mg/dL (70-99) H Calcium Level 8.7 mg/dL (8.5-10.1) Total Bilirubin 0.3 mg/dL (0.2-1.0) Aspartate Amino Transferase (AST) 14 U/L (15-37) L Alanine Aminotransferase (ALT) 18 U/L (14-59) Alkaline Phosphatase 104 U/L (46-116) Total Protein 7.9 g/dL (6.4-8.2) Albumin 3.3 g/dL (3.4-5.0) L Albumin/Globulin Ratio 0.7 (1.0-1.7) L Laboratory Tests 06/25/19 17:20 Laboratory Tests 06/25/19 17:20 Microbiology 06/25/19 Urine Culture - Final, Complete 06/25/19 Urine Culture Result 1 (ESTUARDO) - Final, Complete (LONNIE RENAE MD) Lab Values Laboratory Tests Test 06/25/19 16:40 06/25/19 17:20 Urine Color Yellow Urine Clarity Clear Urine pH 6.5 Urine Specific [place] 1.015 Urine Protein Negative mg/dL (NEG-TRACE) Urine Glucose (UA) 100 mg/dL (NEG) Urine Ketones (Stick) Negative mg/dL (NEG) Urine Blood Negative (NEG) Urine Nitrite Negative (NEG) Urine Bilirubin Negative (NEG) Urine Urobilinogen Dipstick 0.2 mg/dL (0.2 mg/dL) Urine Leukocyte Esterase Large (NEG) Urine RBC 0 /HPF (0-2) Urine WBC 11-20 /HPF (0-4) Urine Squamous Epithelial Cells Occ /LPF Urine Bacteria Few /HPF (0-FEW) White Blood Count 12.2 x10^3/uL (4.0-11.0) H Red Blood Count 4.72 x10^6/uL (3.50-5.40) Hemoglobin 13.2 g/dL (12.0-15.5) Hematocrit 39.8 % (36.0-47.0) Mean Corpuscular Volume 84 fL (79-100) Mean Corpuscular Hemoglobin 28 pg (25-35) Mean Corpuscular Hemoglobin Concent 33 g/dL (31-37) Red Cell Distribution Width 15.4 % (11.5-14.5) H Platelet Count 523 x10^3/uL (140-400) H Neutrophils (%) (Auto) 78 % (31-73) H Lymphocytes (%) (Auto) 10 % (24-48) L Monocytes (%) (Auto) 7 % (0-9) Eosinophils (%) (Auto) 5 % (0-3) H Basophils (%) (Auto) 0 % (0-3) Neutrophils # (Auto) 9.5 x10^3/uL (1.8-7.7) H Lymphocytes # (Auto) 1.2 x10^3/uL (1.0-4.8) Monocytes # (Auto) 0.8 x10^3/uL (0.0-1.1) Eosinophils # (Auto) 0.6 x10^3/uL (0.0-0.7) Basophils # (Auto) 0.0 x10^3/uL (0.0-0.2) Sodium Level 135 mmol/L (136-145) L Potassium Level 4.1 mmol/L (3.5-5.1) Chloride Level 98 mmol/L (98-107) Carbon Dioxide Level 28 mmol/L (21-32) Anion Gap 9 (6-14) Blood Urea Nitrogen 10 mg/dL (7-20) Creatinine 0.9 mg/dL (0.6-1.0) Estimated GFR (Cockcroft-Gault) 64.3 BUN/Creatinine Ratio 11 (6-20) Glucose Level 284 mg/dL (70-99) H Calcium Level 8.7 mg/dL (8.5-10.1) Total Bilirubin 0.3 mg/dL (0.2-1.0) Aspartate Amino Transferase (AST) 14 U/L (15-37) L Alanine Aminotransferase (ALT) 18 U/L (14-59) Alkaline Phosphatase 104 U/L (46-116) Total Protein 7.9 g/dL (6.4-8.2) Albumin 3.3 g/dL (3.4-5.0) L Albumin/Globulin Ratio 0.7 (1.0-1.7) L Laboratory Tests 06/25/19 17:20 Laboratory Tests 06/25/19 17:20 (MARCUS SHIELDS APRN) EKG EKG [] (MARCUS SHIELDS APRN) Radiology/Procedures Radiology/Procedures [] (MARCUS SHIELDS APRN) Impressions: [facility] [id number] [place], [place] [id number] IMAGING REPORT Signed PATIENT: ARIAS THOMPSON ACCOUNT: [id number] : 1960 LOCATION: ER AGE: 58 SEX: F EXAM STATUS: REG ER ORD. PHYSICIAN: MARCUS SHIELDS APRN REASON: ABD PAIN PROCEDURE: CT ABD PELV W/ IV CONTRST ONLY CT ABD PELV W/ IV CONTRST ONLY History: Abdominal pain. Technique: After the administration of intravenous contrast, CT imaging was performed of the abdomen and pelvis. Multiplanar images are reviewed. Exposure: One or more of the following individualized dose reduction techniques were utilized for this examination: 1. Automated exposure control 2. Adjustment of the mA and/or kV according to patient size 3. Use of iterative reconstruction technique. Comparison: November 11, 2016 Findings: Lower chest: No consolidation or pleural effusion. Small hiatal hernia. Postop changes GE junction. Abdomen and pelvis: Several tiny right hepatic hypodensities, too small to further characterize. The spleen, adrenal glands, and pancreas are unremarkable. Prior cholecystectomy. No biliary ductal dilatation. Normal appearance of the kidneys. No hydronephrosis. No intrarenal calculi. Sigmoid colonic wall thickening with adjacent inflammatory changes and diverticulosis. No abscess. No perforation. Normal appendix. No evidence of bowel obstruction. No pathologic lymphadenopathy. No ascites. Otherwise, pelvic contents are unremarkable. Several rounded densities within the transverse colon and cecum, likely recently ingested material. Bones: No pathologic osseous lesions. Multilevel lumbar spondylosis most prominent L1-L2 and L2-L3. Leftward curvature of the lumbar spine. Impression: 1. Acute sigmoid diverticulitis. No perforation or abscess. 2. Small hiatal hernia with postoperative changes at the GE junction, unchanged. Electronically signed by: Narinder Gauthier DO (06/25/2019 6:57 PM) [facility] DICTATED and SIGNED BY: NARINDER GAUTHIER DO DATE: 06/25/19 185 (MARCUS SHIELDS APRN) Course & Med Decision Making Course & Med Decision Making Abdomen is soft with there is tenderness to the right and left lower abdomen. No CVA tenderness. Skin pink warm and dry. Speaks in full clear sentences. Ambulatory with a steady gait. Vital signs within normal limits. Afebrile. No extremity edema. Alert and oriented. Patient states she has had some decreased appetite has been eating. Patient is in pretty good pain and asking for pain medication. She is rating her pain 9 out of 10. Impression: 1. Acute sigmoid diverticulitis. No perforation or abscess. 2. Small hiatal hernia with postoperative changes at the GE junction, unchanged. Social has a urinary tract infection. Patient has an elevated white count. Due to the patient's pain patient will be admitted to Dr. Rubio with a GI referral. (MARCUS SHIELDS APRN) Course & Med Decision Making I was not involved in the care of this patient after 1800 on 06/25/2019. (LONNIE RENAE MD) Dragon Disclaimer Dragon Disclaimer This electronic medical record was generated, in whole or in part, using a voice recognition dictation system. (MARCUS SHIELDS APRN) Departure Departure Impression: Primary Impression: Diverticulitis Additional Impression: UTI (urinary tract infection) Disposition: ADMITTED INPATIENT Admitting Physician: JOCELINE (MARCUS SHIELDS APRN) Condition: STABLE Referrals: JONATHON DEL TORO MD (PCP) Scripts Polyethylene Glycol 3350 (POLYETHYLENE GLYCOL 3350) 17 Gm Powd.pack 17 GM PO PRN DAILY PRN for CONSTIPATION for 30 Days, #30 PKT Prov: SILVIA SCHOFIELD MD 06/27/19 Metoprolol Succinate (Toprol XL) 50 Mg Tab.er.24h 50 MG PO DAILY for blood pressure for 30 Days, #30 TAB.SR Prov: SILVIA SCHOFIELD MD 06/27/19 Metronidazole (FLAGYL) 500 Mg Tablet 500 MG PO Q12HR for diverticulitis for 10 Days, #20 TAB Prov: SILVIA SCHOFIELD MD 06/27/19 Ciprofloxacin Hcl (CIPRO) 250 Mg Tablet 500 MG PO BID for infection, diverticulitis for 10 Days, #40 TAB Prov: SILVIA SCHOFIELD MD 06/27/19 Problem Qualifiers Additional Impression: UTI (urinary tract infection) Urinary tract infection type: site unspecified Hematuria presence: without hematuria Qualified Codes: N39.0 - Urinary tract infection, site not specified MARCUS SHIELDS APRN Jun 25, 2019 17:33 LONNIE RENAE MD Jun 30, 2019 18:51
[2019-06-25 17:38] LABS: BACTERIA,URINE FEW /HPF (0-FEW); RBC,URINE 0 /HPF (0-2); SQUAMOUS EPITHELIAL CELL,UR OCC /LPF
[2019-06-25 17:39] LABS: BASO % 0 % (0-3); EOS # 0.6 x10^3/uL (0.0-0.7); EOS % 5 % (0-3); HEMATOCRIT 39.8 % (36.0-47.0); HEMOGLOBIN 13.2 g/dL (12.0-15.5); LYMPH # 1.2 x10^3/uL (1.0-4.8); LYMPH % 10 % (24-48); MEAN CORPUSCULAR HEMOGLOBIN 28 pg (25-35); MEAN CORPUSCULAR HGB CONC 33 g/dL (31-37); MEAN CORPUSCULAR VOLUME 84 fL (79-100); MONO # 0.8 x10^3/uL (0.0-1.1); MONO % 7 % (0-9); NEUT # 9.5 x10^3/uL (1.8-7.7); NEUT % 78 % (31-73); PLATELET COUNT 523 x10^3/uL (140-400); RED BLOOD COUNT 4.72 x10^6/uL (3.50-5.40); RED CELL DISTRIBUTION WIDTH 15.4 % (11.5-14.5); WHITE BLOOD COUNT 12.2 x10^3/uL (4.0-11.0)
[2019-06-25 17:51] LABS: CALCIUM 8.7 mg/dL (8.5-10.1); CREATININE 0.9 mg/dL (0.6-1.0); GFR 64.3; POTASSIUM 4.1 mmol/L (3.5-5.1)
[2019-06-25 18:06] LABS: ALBUMIN 3.3 g/dL (3.4-5.0); ALBUMIN/GLOBULIN RATIO 0.7 (1.0-1.7); TOTAL BILIRUBIN 0.3 mg/dL (0.2-1.0); TOTAL PROTEIN 7.9 g/dL (6.4-8.2)
[2019-06-25] MEDS ORDERED: fentaNYL PF VIAL 100 MCG/2 ML VIAL IVP ONE (18:15)
[2019-06-25] MEDS ORDERED: IV NORMAL SALINE 1000ML BAG 1,000 ML IV ONE (18:15)
[2019-06-25] MEDS ORDERED: IOHEXOL 350 MG/ML 100 ML VIAL. IV ONE (18:30)
[2019-06-25] MEDS ORDERED: CONTRAST GIVEN. MC PRN (18:30)
[2019-06-25] MEDS ORDERED: IOHEXOL 300 MG/ML 100ML VIAL. IV ONE (18:45)
--- NOTE | 2019-06-25 19:00 | RAD ---
CT ABD PELV W/ IV CONTRST ONLY History: Abdominal pain. Technique: After the administration of intravenous contrast, CT imaging was performed of the abdomen and pelvis. Multiplanar images are reviewed. Exposure: One or more of the following individualized dose reduction techniques were utilized for this examination: 1. Automated exposure control 2. Adjustment of the mA and/or kV according to patient size 3. Use of iterative reconstruction technique. Comparison: November 11, 2016 Findings: Lower chest: No consolidation or pleural effusion. Small hiatal hernia. Postop changes GE junction. Abdomen and pelvis: Several tiny right hepatic hypodensities, too small to further characterize. The spleen, adrenal glands, and pancreas are unremarkable. Prior cholecystectomy. No biliary ductal dilatation. Normal appearance of the kidneys. No hydronephrosis. No intrarenal calculi. Sigmoid colonic wall thickening with adjacent inflammatory changes and diverticulosis. No abscess. No perforation. Normal appendix. No evidence of bowel obstruction. No pathologic lymphadenopathy. No ascites. Otherwise, pelvic contents are unremarkable. Several rounded densities within the transverse colon and cecum, likely recently ingested material. Bones: No pathologic osseous lesions. Multilevel lumbar spondylosis most prominent L1-L2 and L2-L3. Leftward curvature of the lumbar spine. Impression: 1. Acute sigmoid diverticulitis. No perforation or abscess. 2. Small hiatal hernia with postoperative changes at the GE junction, unchanged. Electronically signed by: Narinder Gauthier DO (06/25/2019 6:57 PM) [facility]
[2019-06-25] MEDS ORDERED: ONDANSETRON PF 4 MG/2 ML VIAL. IV PRN (20:00)
[2019-06-25] MEDS ORDERED: ACETAMINOPHEN 325 MG TABLET. PO PRN (20:00)
[2019-06-25 21:10] VITALS: BP 150/94
--- NOTE | 2019-06-25 21:30 | NUR ---
admitted to room 408 from ED, Admission care done, POC discussed with patient and verbalized understanding.
[2019-06-25] MEDS ORDERED: GABA600T7 PO (22:45)
[2019-06-25 23:00] VITALS: BP 154/90
[2019-06-25] MEDS ORDERED: ALBUTEROL SULFATE 2.5 MG/3 ML NEBU. INH SCH (23:15)
[2019-06-25] MEDS: INSULIN GLARGINE SYRINGE. SQ SCH (23:42)
[2019-06-25] MEDS: fentaNYL PF VIAL 100 MCG/2 ML VIAL IV PRN (23:48)
[2019-06-26] MEDS ORDERED: IV DEXTROSE 5% 250 ML BAG. IV PRN (02:15)
[2019-06-26] MEDS ORDERED: DEXTROSE 50% 25 GM / 50ML DISP.SYRIN. IV PRN (02:15)
[2019-06-26 03:00] VITALS: BP 124/75
[2019-06-26 07:00] VITALS: BP 133/85
[2019-06-26] MEDS: INSULIN LISPRO 300 UNITS/3 ML VIAL. SQ SCH ×5 (08:00→18:01)
--- NOTE | 2019-06-26 09:50 | PDOC2 ---
GI CONSULT Reason For Consult: diverticulitis HPI: HPI: Pleasant 58 y/o female admitted through ER - sent there by PCP w/ concern for diverticulitis. 1 week of lower abdominal pain (R>L) radiating to back w/ occasional urgency of stool. CT as below notes sigmoid diverticulitis. Given Cipro and Flagyl x 1 in ER, has been NPO. Fentanyl helping pain. No previous episodes of diverticulitis though was treated empirically w/ Cipro for diverticulitis. RLQ/suprapubic pain improved but then recurred - worse this time. Also reports fairly recent pelvis US revealing uterine fibroids. GERD improved w/ Prilosec BID. No dysphagia, n/v, chronic abd pain, constipation, hematochezia, melena, change in appetite (very hungry - ate burger and fries before coming to ER), or weight loss. EGD and colonoscopy [place] [address] 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 S/p Maximilian fundoplication (Dr. Segura in 2013). S/p cholecystectomy. No pancreas history. Fatty liver on US from 2015. No NSAIDs. H/o lupus on Imuran. Also reports swallowing a prong of a plastic fork about 3 months ago. PMH: PMH: HTN, HLD, DM, ALEXEI, anxiety, lupus, hypothyroidism, GERD/Victoria's, colon polyps, diverticulosis, hemorrhoids Maximilian fundoplication, cholecystectomy, left salipingooophorectomy, tonsillectomy, cervical fusion, cataract removal FH: Family History: Cancer (breast) Social History: ALCOHOL: rare Drugs: Marijuana (+ in the past) ROS: GEN: Denies fevers, chills, sweats HEENT: Denies blurred vision, sore throat CV: Denies chest pain RESP: Denies shortness of air, cough GI: Per HPI : Denies hematuria, dysuria ENDO: Denies weight changes NEURO: Denies confusion, dizziness MSK: Denies weakness, joint pain/swelling SKIN: Denies jaundice, pruritus Vitals: Vitals: Vital Signs Date Time Temp Pulse Resp B/P (MAP) Pulse Ox O2 Delivery O2 Flow Rate FiO2 06/26/19 08:45 95 Room Air 06/26/19 07:00 97.4 74 18 133/85 (101) 97.4 Labs: Labs: Laboratory Tests Test 06/25/19 16:40 06/25/19 17:20 06/25/19 21:41 06/26/19 08:07 Urine Color Yellow Urine Clarity Clear Urine pH 6.5 Urine Specific [place] 1.015 Urine Protein Negative mg/dL (NEG-TRACE) Urine Glucose (UA) 100 mg/dL (NEG) Urine Ketones (Stick) Negative mg/dL (NEG) Urine Blood Negative (NEG) Urine Nitrite Negative (NEG) Urine Bilirubin Negative (NEG) Urine Urobilinogen Dipstick 0.2 mg/dL (0.2 mg/dL) Urine Leukocyte Esterase Large (NEG) Urine RBC 0 /HPF (0-2) Urine WBC 11-20 /HPF (0-4) Urine Squamous Epithelial Cells Occ /LPF Urine Bacteria Few /HPF (0-FEW) White Blood Count 12.2 x10^3/uL (4.0-11.0) Red Blood Count 4.72 x10^6/uL (3.50-5.40) Hemoglobin 13.2 g/dL (12.0-15.5) Hematocrit 39.8 % (36.0-47.0) Mean Corpuscular Volume 84 fL (79-100) Mean Corpuscular Hemoglobin 28 pg (25-35) Mean Corpuscular Hemoglobin Concent 33 g/dL (31-37) Red Cell Distribution Width 15.4 % (11.5-14.5) Platelet Count 523 x10^3/uL (140-400) Neutrophils (%) (Auto) 78 % (31-73) Lymphocytes (%) (Auto) 10 % (24-48) Monocytes (%) (Auto) 7 % (0-9) Eosinophils (%) (Auto) 5 % (0-3) Basophils (%) (Auto) 0 % (0-3) Neutrophils # (Auto) 9.5 x10^3/uL (1.8-7.7) Lymphocytes # (Auto) 1.2 x10^3/uL (1.0-4.8) Monocytes # (Auto) 0.8 x10^3/uL (0.0-1.1) Eosinophils # (Auto) 0.6 x10^3/uL (0.0-0.7) Basophils # (Auto) 0.0 x10^3/uL (0.0-0.2) Sodium Level 135 mmol/L (136-145) Potassium Level 4.1 mmol/L (3.5-5.1) Chloride Level 98 mmol/L (98-107) Carbon Dioxide Level 28 mmol/L (21-32) Anion Gap 9 (6-14) Blood Urea Nitrogen 10 mg/dL (7-20) Creatinine 0.9 mg/dL (0.6-1.0) Estimated GFR (Cockcroft-Gault) 64.3 BUN/Creatinine Ratio 11 (6-20) Glucose Level 284 mg/dL (70-99) Calcium Level 8.7 mg/dL (8.5-10.1) Total Bilirubin 0.3 mg/dL (0.2-1.0) Aspartate Amino Transf (AST/SGOT) 14 U/L (15-37) Alanine Aminotransferase (ALT/SGPT) 18 U/L (14-59) Alkaline Phosphatase 104 U/L (46-116) Total Protein 7.9 g/dL (6.4-8.2) Albumin 3.3 g/dL (3.4-5.0) Albumin/Globulin Ratio 0.7 (1.0-1.7) Glucose (Fingerstick) 222 mg/dL (70-99) 155 mg/dL (70-99) Allergies: Coded Allergies: lisinopril (Unverified Allergy, Severe, WELTS, 07/07/18) Sulfa (Sulfonamide Antibiotics) (Verified Allergy, Intermediate, rash, 07/07/18) adhesive (Verified Allergy, Intermediate, skin sensitivity, 07/07/18) tetracycline (Verified Allergy, Intermediate, rash, 07/07/18) amoxicillin trihydrate (Verified Adverse Reaction, Intermediate, vomiting, 07/07/18) potassium clavulanate (Verified Adverse Reaction, Intermediate, vomiting, 07/07/18) Uncoded Allergies: PERFUMES (Allergy, Intermediate, ASTHMA ATTACK (AND ANY CHEMICALS CLEANING PRODUCTS), 06/05/18) Medications: Current Medications Medications (Trade) Dose Ordered Sig/Jacinto Route PRN Reason Start Time Stop Time Status Last Admin Dose Admin Sodium Chloride 1,000 ml @ 1,000 mls/hr Q1H IV 06/25/19 17:27 06/25/19 18:26 DC 06/25/19 17:44 Fentanyl Citrate (Fentanyl 2ml Vial) 50 mcg 1X ONCE IV 06/25/19 17:30 06/25/19 17:31 DC 06/25/19 17:44 Sodium Chloride 1,000 ml @ 1,000 mls/hr 1X ONCE IV 06/25/19 18:15 06/25/19 19:14 DC 06/25/19 19:29 Fentanyl Citrate (Fentanyl 2ml Vial) 50 mcg 1X ONCE IVP 06/25/19 18:15 06/25/19 18:16 DC 06/25/19 18:56 Iohexol (Omnipaque 300 Mg/ml) 75 ml 1X ONCE IV 06/25/19 18:45 06/25/19 18:46 DC 06/25/19 18:35 Fentanyl Citrate (Fentanyl 2ml Vial) 50 mcg PRN Q1HR PRN IV PAIN 06/25/19 20:00 06/26/19 19:59 06/25/19 23:48 Levofloxacin/ Dextrose 150 ml @ 100 mls/hr 1X ONCE IV 06/25/19 20:00 06/25/19 21:29 DC 06/25/19 20:34 Metronidazole 100 ml @ 100 mls/hr 1X ONCE IV 06/25/19 20:00 06/25/19 20:59 DC 06/25/19 22:19 Insulin Glargine (Lantus Syringe) 50 unit QHS SQ 06/25/19 23:30 06/25/19 23:42 Imaging: Imaging: CT A/P w/ IV contrast Findings: Lower chest: No consolidation or pleural effusion. Small hiatal hernia. Postop changes GE junction. Abdomen and pelvis: Several tiny right hepatic hypodensities, too small to further characterize. The spleen, adrenal glands, and pancreas are unremarkable. Prior cholecystectomy. No biliary ductal dilatation. Normal appearance of the kidneys. No hydronephrosis. No intrarenal calculi. Sigmoid colonic wall thickening with adjacent inflammatory changes and diverticulosis. No abscess. No perforation. Normal appendix. No evidence of bowel obstruction. No pathologic lymphadenopathy. No ascites. Otherwise, pelvic contents are unremarkable. Several rounded densities within the transverse colon and cecum, likely recently ingested material. Bones: No pathologic osseous lesions. Multilevel lumbar spondylosis most prominent L1-L2 and L2-L3. Leftward curvature of the lumbar spine. Impression: 1. Acute sigmoid diverticulitis. No perforation or abscess. 2. Small hiatal hernia with postoperative changes at the GE junction, unchanged. PE: GEN: NAD HEENT: Atraumatic, PERRL LUNGS: CTAB HEART: RRR ABD: quiet BS, soft, RLQ to suprapubic soreness, less to LLQ and not so much in upper abdomen EXTREMITY: No edema SKIN: No rashes, no jaundice NEURO/PSYCH: A & O 3 A/P: A/P: Diverticulitis - treated empirically as outpt ~6 weeks ago for same H/o GERD/Victoria's S/p Maximilian fundoplication CRC screen, h/o polyps - no polyps on last colonoscopy in 2012 S/p cholecystectomy Fatty liver (on US in 2015), several tiny right hepatic hypodensities (on current CT) Lupus -- Cautiously try clears, continue IV atbx. Add PPI. Home meds per Dr. Rubio. She'd like to advance her diet quickly and go home to care for her cats - will reassess with Dr. Nye later today. Plan for outpt colonoscopy in ~2 months - probably should have EGD then as well w/ h/o Victoria's. Could consider further imaging of liver at some point. CLARITA PITTS Jun 26, 2019 09:50
[2019-06-26] MEDS ORDERED: CIPROFLOXACIN 400MG PREMIX 200 ML IV SCH (10:30)
[2019-06-26 11:00] VITALS: BP 154/84
[2019-06-26] MEDS ORDERED: PANTOPRAZOLE 40 MG TABLET.DR. PO SCH (11:30)
--- NOTE | 2019-06-26 11:54 | HP ---
ADMIT DATE: 06/25/2019 CHIEF COMPLAINT: Abdominal pain. HISTORY OF PRESENT ILLNESS: The patient is a pleasant middle-aged female who presents with abdominal pain. It hurts in the left flank. It is rated at a 9/10. She has associated nausea. This has been occurring for several days, but it got worse in the past 24 hours. She took some home meds, but that did not seem to help. I discussed the case with ER physician, it appears she has apparent diverticulitis. We are going to admit the patient and consult GI. PAST MEDICAL HISTORY: Asthma, diabetes, hypertension, hyperlipidemia, hypothyroidism, cholecystectomy, tonsillectomy, C4 through C6 fusion, oophorectomy. ALLERGIES: PERFUMES, SULFA, LISINOPRIL, CLAVULANIC ACID, TETRACYCLINE. FAMILY HISTORY: Coronary disease. SOCIAL HISTORY: She does not drink, smoke or take drugs. She works for [employer] in the [facility] area. MEDICATIONS: Reviewed, please refer to the MRAD. REVIEW OF SYSTEMS: GENERAL: No history of weight change, weakness or fevers. SKIN: No bruising, hair changes or rashes. EYES: No blurred, double or loss of vision. NOSE AND THROAT: No history of nosebleeds, hoarseness or sore throat. HEART: No history of palpitations, chest pain or shortness of breath on exertion. LUNGS: Denies cough, hemoptysis, wheezing or shortness of breath. GASTROINTESTINAL: She complains of abdominal pain. GENITOURINARY: No history of frequency, urgency, hesitancy or nocturia. NEUROLOGIC: Denies history of numbness, tingling, tremor or weakness. PSYCHIATRIC: No history of panic, anxiety or depression. ENDOCRINE: No history of heat or cold intolerance, polyuria or polydipsia. EXTREMITIES: Denies muscle weakness, joint pain, pain on walking or stiffness NOSE AND THROAT: exertion. LUNGS: Denies cough, hemoptysis, wheezing or shortness of breath. GASTROINTESTINAL: She complains of abdominal pain on walking or stiffness. PHYSICAL EXAMINATION: VITALS: Within normal limits and are stable. GENERAL: No apparent distress. Alert and oriented. HEENT: Normal cephalic atraumatic, external auditory canals are patent EYES: Extraocular muscles are intact, pupils are equally round and reactive to light and accommodation MUSCULOSKELETAL: Well developed, well nourished, good range of motion ENDOCRINE: No thyromegaly was palpated LYMPHATICS: No cervical chain or axillary nodes were noted HEMATOPOIETIC: No bruising NECK: Supple, no JVD, no thyromegaly was noted. LUNGS: Clear to auscultation in all lung meek without rhonchi or wheezing. HEART: RRR, S1, S2 present. Peripheral pulses intact, no obvious murmurs were noted. ABDOMEN: She has some left flank pain to palpation. EXTREMITIES: Without any cyanosis, clubbing, or edema. Pedal pulses intact, Homans sign is negative. NEUROLOGIC: Normal speech, normal tone. A & O x3, moves all extremities, no obvious focal deficits. PSYCHIATRIC: Normal affect, normal mood. Stable. SKIN: No ulcerations or rashes, good skin turgor, no jaundice. VASCULAR: Good capillary refill, neurovascular bundle appears to be intact. IMAGING: CAT scan shows diverticulitis. ASSESSMENT AND PLAN: Diverticulitis. The patient will be admitted. We will start IV antibiotics including Cipro and Flagyl. Consult GI, home meds, DVT prophylaxis, full code, p.r.n. Zofran, IV hydration, and trend labs. KELL OSPINA DO DR: AJMIL/olivia JOB#: [id number] / [id number]
[2019-06-26] MEDS: fentaNYL PF VIAL 100 MCG/2 ML VIAL IV PRN ×2 (12:13→18:59)
[2019-06-26] MEDS: LOSARTAN POTASSIUM 50 MG TABLET. PO SCH (12:14)
[2019-06-26] MEDS: METOPROLOL SUCC 24HR ER 50 MG TAB.ER.24H. PO SCH (12:15)
[2019-06-26] MEDS: azaTHIOprine 50 MG TABLET PO SCH (12:15)
--- NOTE | 2019-06-26 12:56 | NUR ---
SW following. Discussed with RN, pt is from home. RN advised no SW needs at this time. SW will continue to follow should any discharge planning needs arise.
[2019-06-26] MEDS ORDERED: NON FORMULARY ITEM (Gabapentin 300 MG) PO SCH (14:00)
[2019-06-26] MEDS: GABAPENTIN 300 MG CAPSULE. PO SCH ×2 (14:18→21:58)
[2019-06-26] MEDS: POLYETHYLENE GLYCOL 3350 17 GM PACKET. PO PRN (14:20)
[2019-06-26 15:00] VITALS: BP 140/88
[2019-06-26] MEDS: PANTOPRAZOLE 40 MG TABLET.DR. PO SCH (16:37)
[2019-06-26 19:40] VITALS: BP 124/73
[2019-06-26] MEDS ORDERED: NON FORMULARY ITEM (Insulin Glargine,Hum.rec.anlog (Lantus Solostar) 50 UNIT) SQ SCH (21:00)
[2019-06-26] MEDS ORDERED: ATORVASTATIN CALCIUM 10 MG TABLET. PO SCH (21:00)
[2019-06-26] MEDS: CIPROFLOXACIN 400MG PREMIX 200 ML IV SCH (21:58)
[2019-06-26] MEDS: INSULIN GLARGINE SYRINGE. SQ SCH (22:07)
[2019-06-26 23:26] VITALS: BP 113/78
[2019-06-27 03:22] VITALS: BP 131/80
[2019-06-27 04:36] LABS: HEMATOCRIT 38.4 % (36.0-47.0); HEMOGLOBIN 12.8 g/dL (12.0-15.5); RED BLOOD COUNT 4.55 x10^6/uL (3.50-5.40); RED CELL DISTRIBUTION WIDTH 15.4 % (11.5-14.5); WHITE BLOOD COUNT 8.8 x10^3/uL (4.0-11.0)
[2019-06-27 04:50] LABS: CALCIUM 8.9 mg/dL (8.5-10.1); CREATININE 0.9 mg/dL (0.6-1.0); GFR 64.3; POTASSIUM 3.7 mmol/L (3.5-5.1)
[2019-06-27 07:00] VITALS: BP 138/99
[2019-06-27] MEDS: METOPROLOL SUCC 24HR ER 50 MG TAB.ER.24H. PO SCH (08:27)
[2019-06-27] MEDS: azaTHIOprine 50 MG TABLET PO SCH (08:27)
[2019-06-27] MEDS: PANTOPRAZOLE 40 MG TABLET.DR. PO SCH (08:27)
[2019-06-27] MEDS: GABAPENTIN 300 MG CAPSULE. PO SCH (08:27)
[2019-06-27] MEDS: LOSARTAN POTASSIUM 50 MG TABLET. PO SCH (08:27)
[2019-06-27] MEDS: POLYETHYLENE GLYCOL 3350 17 GM PACKET. PO PRN (08:28)
[2019-06-27] MEDS: INSULIN LISPRO 300 UNITS/3 ML VIAL. SQ SCH ×4 (08:38→11:59)
[2019-06-27] MEDS: CIPROFLOXACIN 400MG PREMIX 200 ML IV SCH (09:49)
--- NOTE | 2019-06-27 10:04 | PDOC ---
Subjective: Subjective: Hasn't had pain meds since last night, feeling better. Tolerating diet but wishes trays would come with salt. Has stooled yet but feels like she might. Would like to go home to check on her cats. Objective: Vital Signs: Vital Signs Date Time Temp Pulse Resp B/P (MAP) Pulse Ox O2 Delivery O2 Flow Rate FiO2 06/27/19 08:27 79 138/99 06/27/19 07:30 Room Air 06/27/19 07:00 97.5 16 94 97.5 Labs: Laboratory Tests Test 06/26/19 11:27 06/26/19 16:50 06/26/19 20:26 06/27/19 03:20 Glucose (Fingerstick) 136 mg/dL 167 mg/dL 132 mg/dL White Blood Count 8.8 x10^3/uL Red Blood Count 4.55 x10^6/uL Hemoglobin 12.8 g/dL Hematocrit 38.4 % Mean Corpuscular Volume 84 fL Mean Corpuscular Hemoglobin 28 pg Mean Corpuscular Hemoglobin Concent 33 g/dL Red Cell Distribution Width 15.4 % Platelet Count 480 x10^3/uL Sodium Level 143 mmol/L Potassium Level 3.7 mmol/L Chloride Level 106 mmol/L Carbon Dioxide Level 28 mmol/L Anion Gap 9 Blood Urea Nitrogen 8 mg/dL Creatinine 0.9 mg/dL Estimated GFR (Cockcroft-Gault) 64.3 Glucose Level 157 mg/dL Calcium Level 8.9 mg/dL Test 06/27/19 07:27 Glucose (Fingerstick) 162 mg/dL PE: GEN: NAD LUNGS: CTAB HEART: RRR ABD: S/ND/NT NEURO/PSYCH: A & O 3 A/P: Diverticulitis - treated empirically as outpt, then admitted when symptoms recurred, first episode, swallowed plastic fork prong 3 months ago H/o GERD/Victoria's, s/p Maximilian fundoplication - last EGD 2012 CRC screen, h/o polyps, FH rectal cancer Fatty liver, several tiny right hepatic hypodensities -- Tolerating diet, pain improved. DC per primary on PO atbx. Follow-up for outpt EGD and colonoscopy - our office will arrange. Consider outpt liver US. Continue PPI. Okay to use Miralax PRN. Hemodynamically unstable?: No Is patient in severe pain?: No Is NPO status required?: No CLARITA PITTS Jun 27, 2019 10:04
--- NOTE | 2019-06-27 10:19 | PDOC ---
PROGRESS NOTES History of Present Illness History of Present Illness discharge dx Acute sigmoid diverticulitis. No perforation or abscess. Small hiatal hernia with postoperative changes at the GE junction, unchanged. MORBID OBESITY admitted. po antibiotics including Cipro and Flagyl. Consult GI, ok with d/c home meds, DVT prophylaxis, full code, p.r.n. Zofran, hydration, trend labs. Follow-up for outpt EGD and colonoscopy gi will arrange d/c planning 24 min Vitals Vitals Vital Signs Date Time Temp Pulse Resp B/P (MAP) Pulse Ox O2 Delivery O2 Flow Rate FiO2 06/27/19 08:27 79 138/99 06/27/19 07:30 Room Air 06/27/19 07:00 97.5 16 94 97.5 Physical Exam Physical Exam HEENT: Normal cephalic atraumatic, external auditory canals are patent EYES: Extraocular muscles are intact, pupils are equally round and reactive to light and accommodation MUSCULOSKELETAL: Well developed, well nourished, good range of motion ENDOCRINE: No thyromegaly was palpated LYMPHATICS: No cervical chain or axillary nodes were noted HEMATOPOIETIC: No bruising NECK: Supple, no JVD, no thyromegaly was noted. LUNGS: Clear to auscultation in all lung meek without rhonchi or wheezing. HEART: RRR, S1, S2 present. Peripheral pulses intact, no obvious murmurs were noted. EXTREMITIES: Without any cyanosis, clubbing, or edema. Pedal pulses intact, Homans sign is negative. NEUROLOGIC: Normal speech, normal tone. A & O x3, moves all extremities, no obvious focal deficits. PSYCHIATRIC: Normal affect, normal mood. Stable. SKIN: No ulcerations or rashes, good skin turgor, no jaundice. VASCULAR: Good capillary refill, neurovascular bundle appears to be intact. General: Alert, Oriented X3, Cooperative, No acute distress Heart: Regular rate, Normal S1 Lungs: Clear Abdomen: Normal bowel sounds, Soft, No hepatosplenomegaly Extremities: No cyanosis Labs LABS CT ABD PELV W/ IV CONTRST ONLY History: Abdominal pain. Technique: After the administration of intravenous contrast, CT imaging was performed of the abdomen and pelvis. Multiplanar images are reviewed. Exposure: One or more of the following individualized dose reduction techniques were utilized for this examination: 1. Automated exposure control 2. Adjustment of the mA and/or kV according to patient size 3. Use of iterative reconstruction technique. Comparison: November 11, 2016 Findings: Lower chest: No consolidation or pleural effusion. Small hiatal hernia. Postop changes GE junction. Abdomen and pelvis: Several tiny right hepatic hypodensities, too small to further characterize. The spleen, adrenal glands, and pancreas are unremarkable. Prior cholecystectomy. No biliary ductal dilatation. Normal appearance of the kidneys. No hydronephrosis. No intrarenal calculi. Sigmoid colonic wall thickening with adjacent inflammatory changes and diverticulosis. No abscess. No perforation. Normal appendix. No evidence of bowel obstruction. No pathologic lymphadenopathy. No ascites. Otherwise, pelvic contents are unremarkable. Several rounded densities within the transverse colon and cecum, likely recently ingested material. Bones: No pathologic osseous lesions. Multilevel lumbar spondylosis most prominent L1-L2 and L2-L3. Leftward curvature of the lumbar spine. Impression: 1. Acute sigmoid diverticulitis. No perforation or abscess. 2. Small hiatal hernia with postoperative changes at the GE junction, unchanged. Electronically signed by: Angus Carmichael DO (06/25/2019 6:57 PM) [facility] DICTATED and SIGNED BY: ANGUS CARMICHAEL DO Laboratory Tests Test 06/26/19 11:27 06/26/19 16:50 06/26/19 20:26 06/27/19 03:20 Glucose (Fingerstick) 136 mg/dL (70-99) 167 mg/dL (70-99) 132 mg/dL (70-99) White Blood Count 8.8 x10^3/uL (4.0-11.0) Red Blood Count 4.55 x10^6/uL (3.50-5.40) Hemoglobin 12.8 g/dL (12.0-15.5) Hematocrit 38.4 % (36.0-47.0) Mean Corpuscular Volume 84 fL (79-100) Mean Corpuscular Hemoglobin 28 pg (25-35) Mean Corpuscular Hemoglobin Concent 33 g/dL (31-37) Red Cell Distribution Width 15.4 % (11.5-14.5) Platelet Count 480 x10^3/uL (140-400) Sodium Level 143 mmol/L (136-145) Potassium Level 3.7 mmol/L (3.5-5.1) Chloride Level 106 mmol/L (98-107) Carbon Dioxide Level 28 mmol/L (21-32) Anion Gap 9 (6-14) Blood Urea Nitrogen 8 mg/dL (7-20) Creatinine 0.9 mg/dL (0.6-1.0) Estimated GFR (Cockcroft-Gault) 64.3 Glucose Level 157 mg/dL (70-99) Calcium Level 8.9 mg/dL (8.5-10.1) Test 06/27/19 07:27 Glucose (Fingerstick) 162 mg/dL (70-99) Assessment and Plan Assessmemt and Plan Problems Medical Problems: (1) Diverticulitis Status: Acute (2) UTI (urinary tract infection) Status: Acute Comment Review of Relevant I have reviewed the following items cindy (where applicable) has been applied. Labs Laboratory Tests Test 06/25/19 16:40 06/25/19 17:20 06/25/19 21:41 06/26/19 08:07 Urine Color Yellow Urine Clarity Clear Urine pH 6.5 Urine Specific [place] 1.015 Urine Protein Negative mg/dL (NEG-TRACE) Urine Glucose (UA) 100 mg/dL (NEG) Urine Ketones (Stick) Negative mg/dL (NEG) Urine Blood Negative (NEG) Urine Nitrite Negative (NEG) Urine Bilirubin Negative (NEG) Urine Urobilinogen Dipstick 0.2 mg/dL (0.2 mg/dL) Urine Leukocyte Esterase Large (NEG) Urine RBC 0 /HPF (0-2) Urine WBC 11-20 /HPF (0-4) Urine Squamous Epithelial Cells Occ /LPF Urine Bacteria Few /HPF (0-FEW) White Blood Count 12.2 x10^3/uL (4.0-11.0) Red Blood Count 4.72 x10^6/uL (3.50-5.40) Hemoglobin 13.2 g/dL (12.0-15.5) Hematocrit 39.8 % (36.0-47.0) Mean Corpuscular Volume 84 fL (79-100) Mean Corpuscular Hemoglobin 28 pg (25-35) Mean Corpuscular Hemoglobin Concent 33 g/dL (31-37) Red Cell Distribution Width 15.4 % (11.5-14.5) Platelet Count 523 x10^3/uL (140-400) Neutrophils (%) (Auto) 78 % (31-73) Lymphocytes (%) (Auto) 10 % (24-48) Monocytes (%) (Auto) 7 % (0-9) Eosinophils (%) (Auto) 5 % (0-3) Basophils (%) (Auto) 0 % (0-3) Neutrophils # (Auto) 9.5 x10^3/uL (1.8-7.7) Lymphocytes # (Auto) 1.2 x10^3/uL (1.0-4.8) Monocytes # (Auto) 0.8 x10^3/uL (0.0-1.1) Eosinophils # (Auto) 0.6 x10^3/uL (0.0-0.7) Basophils # (Auto) 0.0 x10^3/uL (0.0-0.2) Sodium Level 135 mmol/L (136-145) Potassium Level 4.1 mmol/L (3.5-5.1) Chloride Level 98 mmol/L (98-107) Carbon Dioxide Level 28 mmol/L (21-32) Anion Gap 9 (6-14) Blood Urea Nitrogen 10 mg/dL (7-20) Creatinine 0.9 mg/dL (0.6-1.0) Estimated GFR (Cockcroft-Gault) 64.3 BUN/Creatinine Ratio 11 (6-20) Glucose Level 284 mg/dL (70-99) Calcium Level 8.7 mg/dL (8.5-10.1) Total Bilirubin 0.3 mg/dL (0.2-1.0) Aspartate Amino Transf (AST/SGOT) 14 U/L (15-37) Alanine Aminotransferase (ALT/SGPT) 18 U/L (14-59) Alkaline Phosphatase 104 U/L (46-116) Total Protein 7.9 g/dL (6.4-8.2) Albumin 3.3 g/dL (3.4-5.0) Albumin/Globulin Ratio 0.7 (1.0-1.7) Glucose (Fingerstick) 222 mg/dL (70-99) 155 mg/dL (70-99) Test 06/26/19 11:27 06/26/19 16:50 06/26/19 20:26 06/27/19 03:20 Glucose (Fingerstick) 136 mg/dL (70-99) 167 mg/dL (70-99) 132 mg/dL (70-99) White Blood Count 8.8 x10^3/uL (4.0-11.0) Red Blood Count 4.55 x10^6/uL (3.50-5.40) Hemoglobin 12.8 g/dL (12.0-15.5) Hematocrit 38.4 % (36.0-47.0) Mean Corpuscular Volume 84 fL (79-100) Mean Corpuscular Hemoglobin 28 pg (25-35) Mean Corpuscular Hemoglobin Concent 33 g/dL (31-37) Red Cell Distribution Width 15.4 % (11.5-14.5) Platelet Count 480 x10^3/uL (140-400) Sodium Level 143 mmol/L (136-145) Potassium Level 3.7 mmol/L (3.5-5.1) Chloride Level 106 mmol/L (98-107) Carbon Dioxide Level 28 mmol/L (21-32) Anion Gap 9 (6-14) Blood Urea Nitrogen 8 mg/dL (7-20) Creatinine 0.9 mg/dL (0.6-1.0) Estimated GFR (Cockcroft-Gault) 64.3 Glucose Level 157 mg/dL (70-99) Calcium Level 8.9 mg/dL (8.5-10.1) Test 06/27/19 07:27 Glucose (Fingerstick) 162 mg/dL (70-99) Laboratory Tests Test 06/26/19 11:27 06/26/19 16:50 06/26/19 20:26 06/27/19 03:20 Glucose (Fingerstick) 136 mg/dL (70-99) 167 mg/dL (70-99) 132 mg/dL (70-99) White Blood Count 8.8 x10^3/uL (4.0-11.0) Red Blood Count 4.55 x10^6/uL (3.50-5.40) Hemoglobin 12.8 g/dL (12.0-15.5) Hematocrit 38.4 % (36.0-47.0) Mean Corpuscular Volume 84 fL (79-100) Mean Corpuscular Hemoglobin 28 pg (25-35) Mean Corpuscular Hemoglobin Concent 33 g/dL (31-37) Red Cell Distribution Width 15.4 % (11.5-14.5) Platelet Count 480 x10^3/uL (140-400) Sodium Level 143 mmol/L (136-145) Potassium Level 3.7 mmol/L (3.5-5.1) Chloride Level 106 mmol/L (98-107) Carbon Dioxide Level 28 mmol/L (21-32) Anion Gap 9 (6-14) Blood Urea Nitrogen 8 mg/dL (7-20) Creatinine 0.9 mg/dL (0.6-1.0) Estimated GFR (Cockcroft-Gault) 64.3 Glucose Level 157 mg/dL (70-99) Calcium Level 8.9 mg/dL (8.5-10.1) Test 06/27/19 07:27 Glucose (Fingerstick) 162 mg/dL (70-99) Medications Current Medications Sodium Chloride 1,000 ml @ 1,000 mls/hr Q1H IV Last administered on 06/25/19at 17:44; Start 06/25/19 at 17:27; Stop 06/25/19 at 18:26; Status DC Fentanyl Citrate (Fentanyl 2ml Vial) 50 mcg 1X ONCE IV Last administered on 06/25/19at 17:44; Start 06/25/19 at 17:30; Stop 06/25/19 at 17:31; Status DC Sodium Chloride 1,000 ml @ 1,000 mls/hr 1X ONCE IV Last administered on 06/25/19at 19:29; Start 06/25/19 at 18:15; Stop 06/25/19 at 19:14; Status DC Fentanyl Citrate (Fentanyl 2ml Vial) 50 mcg 1X ONCE IVP Last administered on 06/25/19at 18:56; Start 06/25/19 at 18:15; Stop 06/25/19 at 18:16; Status DC Iohexol (Omnipaque 350 Mg/ml) 75 ml 1X ONCE IV ; Start 06/25/19 at 18:30; Stop 06/25/19 at 18:31; Status DC Info (CONTRAST GIVEN -- Rx MONITORING) 1 each PRN DAILY PRN MC SEE COMMENTS; Start 06/25/19 at 18:30; Stop 06/27/19 at 18:29 Iohexol (Omnipaque 300 Mg/ml) 75 ml 1X ONCE IV Last administered on 06/25/19at 18:35; Start 06/25/19 at 18:45; Stop 06/25/19 at 18:46; Status DC Ondansetron HCl (Zofran) 4 mg PRN Q8HRS PRN IV NAUSEA/VOMITING; Start 06/25/19 at 20:00; Stop 06/26/19 at 19:59; Status DC Fentanyl Citrate (Fentanyl 2ml Vial) 50 mcg PRN Q1HR PRN IV PAIN Last administe red on 06/26/19at 18:59; Start 06/25/19 at 20:00; Stop 06/26/19 at 19:59; Status DC Acetaminophen (Tylenol) 650 mg PRN Q4HRS PRN PO FEVER; Start 06/25/19 at 20:00; Stop 06/26/19 at 19:59; Status DC Levofloxacin/ Dextrose 150 ml @ 100 mls/hr 1X ONCE IV Last administered on 06/25/19at 20:34; Start 06/25/19 at 20:00; Stop 06/25/19 at 21:29; Status DC Metronidazole 100 ml @ 100 mls/hr 1X ONCE IV Last administered on 06/25/19at 22:19; Start 06/25/19 at 20:00; Stop 06/25/19 at 20:59; Status DC Albuterol Sulfate (Ventolin Neb Soln) 2.5 mg PRN Q6HRS INH ; Start 06/25/19 at 23:15 Non-Formulary Medication (Insulin Glargine,Hum.rec.anlog (Lantus Solostar)) 50 unit QHS SQ ; Start 06/26/19 at 21:00; Status UNV Insulin Glargine (Lantus Syringe) 50 unit QHS SQ Last administered on 06/26/19at 22:07; Start 06/25/19 at 23:30 Insulin Human Lispro (HumaLOG) 0-5 UNITS TIDWMEALS SQ Last administered on 06/27/19at 08:38; Start 06/26/19 at 08:00 Dextrose (Dextrose 50%-Water Syringe) 12.5 gm PRN Q15MIN PRN IV SEE COMMENTS; Start 06/26/19 at 02:15 Dextrose (Iv Dextrose 5%) 250 ml PRN Q15MIN PRN IV SEE COMMENTS; Start 06/26/19 at 02:15 Polyethylene Glycol (miraLAX PACKET) 17 gm PRN DAILY PRN PO CONSTIPATION Last administered on 06/27/19at 08:28; Start 06/26/19 at 10:00 Metronidazole 100 ml @ 100 mls/hr Q12HR IV Last administered on 06/27/19at 08:28; Start 06/26/19 at 10:30; Stop 06/27/19 at 10:00; Status DC Ciprofloxacin/ Dextrose 200 ml @ 200 mls/hr Q12HR IV ; Start 06/26/19 at 10:30; Status Cancel Ciprofloxacin/ Dextrose 200 ml @ 200 mls/hr Q12HR IV Last administered on 06/27/19at 09:49; Start 06/26/19 at 21:00; Stop 06/27/19 at 10:00; Status DC Pantoprazole Sodium (Protonix) 40 mg DAILYAC PO Last administered on 06/26/19at 11:21; Start 06/26/19 at 11:30; Stop 06/26/19 at 12:05; Status DC Azathioprine (Imuran) 50 mg DAILY PO Last administered on 06/27/19at 08:27; Start 06/26/19 at 13:00 Gabapentin (Neurontin) 300 mg TID PO Last administered on 06/27/19 08:27; Start 06/26/19 at 14:00 Non-Formulary Medication (Gabapentin ) 300 mg TID PO ; Start 06/26/19 at 14:00; Status UNV Insulin Human Lispro (HumaLOG) 20 units TIDWMEALS SQ Last administered on 06/27/19at 08:38; Start 06/26/19 at 12:05 Metoprolol Succinate (Toprol Xl) 50 mg DAILY PO Last administered on 06/27/19 08:27; Start 06/26/19 at 12:30 Pantoprazole Sodium (Protonix) 40 mg BIDAC PO Last administered on 06/27/19 08:27; Start 06/26/19 at 16:30 Atorvastatin Calcium (Lipitor) 10 mg QHS PO Last administered on 06/26/19at 21:58; Start 06/26/19 at 21:00 Losartan Potassium (Cozaar) 100 mg DAILY PO Last administered on 1/29/20at 08:27; Start 06/26/19 at 12:00 Ciprofloxacin (Cipro) 500 mg BID PO ; Start 06/27/19 at 21:00 Metronidazole (Flagyl) 500 mg Q12HR PO ; Start 06/27/19 at 21:00 Active Scripts Active Diovan (Valsartan) 160 Mg Tablet 320 Mg PO DAILY Reported Gabapentin 600 Mg Tablet 300 Mg PO TID Lantus Solostar (Insulin Glargine,Hum.rec.anlog) 100 Unit/1 Ml Insuln.pen 50 Unit SQ QHS Metoprolol Tartrate 100 Mg Tablet 100 Mg PO DAILY Pravastatin Sodium 40 Mg Tablet 40 Mg PO DAILY Humalog (Insulin Lispro) 100 Unit/1 Ml Cartridge 20 Unit SQ TID Proair Hfa Inhaler (Albuterol Sulfate) 8.5 Gm Hfa.aer.ad 2 Puff IH PRN Q4-6HRS Prilosec (Omeprazole) 20 Mg Capsule.dr 20 Mg PO BID Neurontin (Gabapentin) 300 Mg Capsule 300 Mg PO TID Imuran (Azathioprine) 50 Mg Tablet 50 Mg PO DAILY Vitals/I & O Vital Sign - Last 24 Hours 06/26/19 06/26/19 06/26/19 06/26/19 11:00 12:13 12:14 12:15 Temp 97.7 97.7 Pulse 67 67 67 Resp 18 B/P (MAP) 154/84 (107) 154/84 154/84 Pulse Ox 95 O2 Delivery Room Air Room Air 06/26/19 06/26/19 06/26/19 06/26/19 13:37 15:00 18:59 19:40 Temp 98.3 98.4 98.3 98.4 Pulse 68 69 Resp 18 18 B/P (MAP) 140/88 (105) 124/73 (90) Pulse Ox 96 94 O2 Delivery Room Air Room Air Room Air Room Air 06/26/19 06/26/19 06/27/19 06/27/19 20:00 23:26 03:22 07:00 Temp 97.8 97.5 97.5 97.8 97.5 97.5 Pulse 68 70 79 Resp 18 16 16 B/P (MAP) 113/78 (90) 131/80 (97) 138/99 (112) Pulse Ox 95 96 94 O2 Delivery Room Air Room Air Room Air Room Air 06/27/19 06/27/19 06/27/19 07:30 08:27 08:27 Pulse 79 79 B/P (MAP) 138/99 138/99 O2 Delivery Room Air Intake and Output 06/26/19 06/26/19 06/27/19 15:00 23:00 07:00 Intake Total 420 ml 620 ml 100 ml Output Total 1 ml 1 ml Balance 420 ml 619 ml 99 ml Hemodynamically unstable?: No Is patient in severe pain?: No Is NPO status required?: No SILVIA SCHOFIELD MD Jun 27, 2019 10:19
--- NOTE | 2019-06-27 10:52 | NUR ---
SW following. Discussed with RN, pt is from home. GI soft diet, room air. RN advised no SW needs and anticipates discharge home with self care today.
[2019-06-27 11:00] VITALS: BP 132/90
--- NOTE | 2019-06-27 12:56 | PDOC3 ---
Discharge Summary Date of Admission: Jun 26, 2019 Date of Discharge: Jun 27, 2019 Follow-Up: 3-5 days Admitting Diagnosis comment: discharge dx Acute sigmoid diverticulitis. No perforation or abscess. Small hiatal hernia with postoperative changes at the GE junction, unchanged. MORBID OBESITY Multilevel lumbar spondylosis most prominent L1-L2 and L2-L3. Leftward curvature of the lumbar spine. admitted. po antibiotics including Cipro and Flagyl. Consult GI, ok with d/c home meds, DVT prophylaxis, full code, p.r.n. Zofran, hydration, trend labs. Follow-up for outpt EGD and colonoscopy gi will arrange d/c planning 24 min Vitals Vitals Vital Signs Date Time Temp Pulse Resp B/P (MAP) Pulse Ox O2 Delivery O2 Flow Rate FiO2 06/27/19 08:27 79 138/99 06/27/19 07:30 Room Air 06/27/19 07:00 97.5 16 94 97.5 Physical Exam Physical Exam HEENT: Normal cephalic atraumatic, external auditory canals are patent EYES: Extraocular muscles are intact, pupils are equally round and reactive to light and accommodation MUSCULOSKELETAL: Well developed, well nourished, good range of motion ENDOCRINE: No thyromegaly was palpated LYMPHATICS: No cervical chain or axillary nodes were noted HEMATOPOIETIC: No bruising NECK: Supple, no JVD, no thyromegaly was noted. LUNGS: Clear to auscultation in all lung meek without rhonchi or wheezing. HEART: RRR, S1, S2 present. Peripheral pulses intact, no obvious murmurs were noted. EXTREMITIES: Without any cyanosis, clubbing, or edema. Pedal pulses intact, Homans sign is negative. NEUROLOGIC: Normal speech, normal tone. A & O x3, moves all extremities, no obvious focal deficits. PSYCHIATRIC: Normal affect, normal mood. Stable. SKIN: No ulcerations or rashes, good skin turgor, no jaundice. VASCULAR: Good capillary refill, neurovascular bundle appears to be intact. General: Alert, Oriented X3, Cooperative, No acute distress Heart: Regular rate, Normal S1 Lungs: Clear Abdomen: Normal bowel sounds, Soft, No hepatosplenomegaly Extremities: No cyanosis Labs LABS CT ABD PELV W/ IV CONTRST ONLY History: Abdominal pain. Technique: After the administration of intravenous contrast, CT imaging was performed of the abdomen and pelvis. Multiplanar images are reviewed. Exposure: One or more of the following individualized dose reduction techniques were utilized for this examination: 1. Automated exposure control 2. Adjustment of the mA and/or kV according to patient size 3. Use of iterative reconstruction technique. Comparison: November 11, 2016 Findings: Lower chest: No consolidation or pleural effusion. Small hiatal hernia. Postop changes GE junction. Abdomen and pelvis: Several tiny right hepatic hypodensities, too small to further characterize. The spleen, adrenal glands, and pancreas are unremarkable. Prior cholecystectomy. No biliary ductal dilatation. Normal appearance of the kidneys. No hydronephrosis. No intrarenal calculi. Sigmoid colonic wall thickening with adjacent inflammatory changes and diverticulosis. No abscess. No perforation. Normal appendix. No evidence of bowel obstruction. No pathologic lymphadenopathy. No ascites. Otherwise, pelvic contents are unremarkable. Several rounded densities within the transverse colon and cecum, likely recently ingested material. Bones: No pathologic osseous lesions. Multilevel lumbar spondylosis most prominent L1-L2 and L2-L3. Leftward curvature of the lumbar spine. Impression: 1. Acute sigmoid diverticulitis. No perforation or abscess. 2. Small hiatal hernia with postoperative changes at the GE junction, unchanged. Electronically signed by: Narinder Gauthier DO (06/25/2019 6:57 PM) [facility] FINAL DIAGNOSIS Problems Medical Problems: (1) Diverticulitis Status: Acute (2) UTI (urinary tract infection) Status: Acute Brief Hospital Course Ms. Herring is a 58 old [sex] who presented with [ acute diverticulitis] CONDITION AT DISCHARGE: Improved Discharge Medications Current Medications Sodium Chloride 1,000 ml @ 1,000 mls/hr Q1H IV Last administered on 06/25/19at 17:44; Start 06/25/19 at 17:27; Stop 06/25/19 at 18:26; Status DC Fentanyl Citrate (Fentanyl 2ml Vial) 50 mcg 1X ONCE IV Last administered on 06/25/19at 17:44; Start 06/25/19 at 17:30; Stop 06/25/19 at 17:31; Status DC Sodium Chloride 1,000 ml @ 1,000 mls/hr 1X ONCE IV Last administered on 06/25/19at 19:29; Start 06/25/19 at 18:15; Stop 06/25/19 at 19:14; Status DC Fentanyl Citrate (Fentanyl 2ml Vial) 50 mcg 1X ONCE IVP Last administered on 06/25/19at 18:56; Start 06/25/19 at 18:15; Stop 06/25/19 at 18:16; Status DC Iohexol (Omnipaque 350 Mg/ml) 75 ml 1X ONCE IV ; Start 06/25/19 at 18:30; Stop 06/25/19 at 18:31; Status DC Info (CONTRAST GIVEN -- Rx MONITORING) 1 each PRN DAILY PRN MC SEE COMMENTS; S tart 06/25/19 at 18:30; Stop 06/27/19 at 18:29 Iohexol (Omnipaque 300 Mg/ml) 75 ml 1X ONCE IV Last administered on 06/25/19at 18:35; Start 06/25/19 at 18:45; Stop 06/25/19 at 18:46; Status DC Ondansetron HCl (Zofran) 4 mg PRN Q8HRS PRN IV NAUSEA/VOMITING; Start 06/25/19 at 20:00; Stop 06/26/19 at 19:59; Status DC Fentanyl Citrate (Fentanyl 2ml Vial) 50 mcg PRN Q1HR PRN IV PAIN Last administered on 06/26/19at 18:59; Start 06/25/19 at 20:00; Stop 06/26/19 at 19:59; Status DC Acetaminophen (Tylenol) 650 mg PRN Q4HRS PRN PO FEVER; Start 06/25/19 at 20:00; Stop 06/26/19 at 19:59; Status DC Levofloxacin/ Dextrose 150 ml @ 100 mls/hr 1X ONCE IV Last administered on 06/25/19at 20:34; Start 06/25/19 at 20:00; Stop 06/25/19 at 21:29; Status DC Metronidazole 100 ml @ 100 mls/hr 1X ONCE IV Last administered on 06/25/19at 22:19; Start 06/25/19 at 20:00; Stop 06/25/19 at 20:59; Status DC Albuterol Sulfate (Ventolin Neb Soln) 2.5 mg PRN Q6HRS INH ; Start 06/25/19 at 23:15 Non-Formulary Medication (Insulin Glargine,Hum.rec.anlog (Lantus Solostar)) 50 unit QHS SQ ; Start 06/26/19 at 21:00; Status UNV Insulin Glargine (Lantus Syringe) 50 unit QHS SQ Last administered on 06/26/19at 22:07; Start 06/25/19 at 23:30 Insulin Human Lispro (HumaLOG) 0-5 UNITS TIDWMEALS SQ Last administered on 06/27/19at 11:58; Start 06/26/19 at 08:00 Dextrose (Dextrose 50%-Water Syringe) 12.5 gm PRN Q15MIN PRN IV SEE COMMENTS; Start 06/26/19 at 02:15 Dextrose (Iv Dextrose 5%) 250 ml PRN Q15MIN PRN IV SEE COMMENTS; Start 06/26/19 at 02:15 Polyethylene Glycol (miraLAX PACKET) 17 gm PRN DAILY PRN PO CONSTIPATION Last administered on 06/27/19at 08:28; Start 06/26/19 at 10:00 Metronidazole 100 ml @ 100 mls/hr Q12HR IV Last administered on 06/27/19at 08:28; Start 06/26/19 at 10:30; Stop 06/27/19 at 10:00; Status DC Ciprofloxacin/ Dextrose 200 ml @ 200 mls/hr Q12HR IV ; Start 06/26/19 at 10:30; Status Cancel Ciprofloxacin/ Dextrose 200 ml @ 200 mls/hr Q12HR IV Last administered on 06/27/19at 09:49; Start 06/26/19 at 21:00; Stop 06/27/19 at 10:00; Status DC Pantoprazole Sodium (Protonix) 40 mg DAILYAC PO Last administered on 06/26/19at 11:21; Start 06/26/19 at 11:30; Stop 06/26/19 at 12:05; Status DC Azathioprine (Imuran) 50 mg DAILY PO Last administered on 06/27/19at 08:27; Start 06/26/19 at 13:00 Gabapentin (Neurontin) 300 mg TID PO Last administered on 06/27/19at 08:27; Start 06/26/19 at 14:00 Non-Formulary Medication (Gabapentin ) 300 mg TID PO ; Start 06/26/19 at 14:00; Status UNV Insulin Human Lispro (HumaLOG) 20 units TIDWMEALS SQ Last administered on 06/27/19at 11:59; Start 06/26/19 at 12:05 Metoprolol Succinate (Toprol Xl) 50 mg DAILY PO Last administered on 06/27/19at 08:27; Start 06/26/19 at 12:30 Pantoprazole Sodium (Protonix) 40 mg BIDAC PO Last administered on 06/27/19at 08:27; Start 06/26/19 at 16:30 Atorvastatin Calcium (Lipitor) 10 mg QHS PO Last administered on 06/26/19at 21:58; Start 06/26/19 at 21:00 Losartan Potassium (Cozaar) 100 mg DAILY PO Last administered on 06/27/19at 08:27; Start 06/26/19 at 12:00 Ciprofloxacin (Cipro) 500 mg BID PO ; Start 06/27/19 at 21:00 Metronidazole (Flagyl) 500 mg Q12HR PO ; Start 06/27/19 at 21:00 Active Scripts Active Diovan (Valsartan) 160 Mg Tablet 320 Mg PO DAILY Reported Gabapentin 600 Mg Tablet 300 Mg PO TID Lantus Solostar (Insulin Glargine,Hum.rec.anlog) 100 Unit/1 Ml Insuln.pen 50 Unit SQ QHS Metoprolol Tartrate 100 Mg Tablet 100 Mg PO DAILY Pravastatin Sodium 40 Mg Tablet 40 Mg PO DAILY Humalog (Insulin Lispro) 100 Unit/1 Ml Cartridge 20 Unit SQ TID Proair Hfa Inhaler (Albuterol Sulfate) 8.5 Gm Hfa.aer.ad 2 Puff IH PRN Q4-6HRS Prilosec (Omeprazole) 20 Mg Capsule.dr 20 Mg PO BID Neurontin (Gabapentin) 300 Mg Capsule 300 Mg PO TID Imuran (Azathioprine) 50 Mg Tablet 50 Mg PO DAILY Vital Signs Vital Signs Date Time Temp Pulse Resp B/P (MAP) Pulse Ox O2 Delivery O2 Flow Rate FiO2 06/27/19 11:00 97.5 68 16 132/90 (104) 97 Room Air 97.5 Labs Laboratory Tests Test 06/25/19 16:40 06/25/19 17:20 06/25/19 21:41 06/26/19 08:07 Urine Color Yellow Urine Clarity Clear Urine pH 6.5 Urine Specific [place] 1.015 Urine Protein Negative mg/dL (NEG-TRACE) Urine Glucose (UA) 100 mg/dL (NEG) Urine Ketones (Stick) Negative mg/dL (NEG) Urine Blood Negative (NEG) Urine Nitrite Negative (NEG) Urine Bilirubin Negative (NEG) Urine Urobilinogen Dipstick 0.2 mg/dL (0.2 mg/dL) Urine Leukocyte Esterase Large (NEG) Urine RBC 0 /HPF (0-2) Urine WBC 11-20 /HPF (0-4) Urine Squamous Epithelial Cells Occ /LPF Urine Bacteria Few /HPF (0-FEW) White Blood Count 12.2 x10^3/uL (4.0-11.0) Red Blood Count 4.72 x10^6/uL (3.50-5.40) Hemoglobin 13.2 g/dL (12.0-15.5) Hematocrit 39.8 % (36.0-47.0) Mean Corpuscular Volume 84 fL (79-100) Mean Corpuscular Hemoglobin 28 pg (25-35) Mean Corpuscular Hemoglobin Concent 33 g/dL (31-37) Red Cell Distribution Width 15.4 % (11.5-14.5) Platelet Count 523 x10^3/uL (140-400) Neutrophils (%) (Auto) 78 % (31-73) Lymphocytes (%) (Auto) 10 % (24-48) Monocytes (%) (Auto) 7 % (0-9) Eosinophils (%) (Auto) 5 % (0-3) Basophils (%) (Auto) 0 % (0-3) Neutrophils # (Auto) 9.5 x10^3/uL (1.8-7.7) Lymphocytes # (Auto) 1.2 x10^3/uL (1.0-4.8) Monocytes # (Auto) 0.8 x10^3/uL (0.0-1.1) Eosinophils # (Auto) 0.6 x10^3/uL (0.0-0.7) Basophils # (Auto) 0.0 x10^3/uL (0.0-0.2) Sodium Level 135 mmol/L (136-145) Potassium Level 4.1 mmol/L (3.5-5.1) Chloride Level 98 mmol/L (98-107) Carbon Dioxide Level 28 mmol/L (21-32) Anion Gap 9 (6-14) Blood Urea Nitrogen 10 mg/dL (7-20) Creatinine 0.9 mg/dL (0.6-1.0) Estimated GFR (Cockcroft-Gault) 64.3 BUN/Creatinine Ratio 11 (6-20) Glucose Level 284 mg/dL (70-99) Calcium Level 8.7 mg/dL (8.5-10.1) Total Bilirubin 0.3 mg/dL (0.2-1.0) Aspartate Amino Transf (AST/SGOT) 14 U/L (15-37) Alanine Aminotransferase (ALT/SGPT) 18 U/L (14-59) Alkaline Phosphatase 104 U/L (46-116) Total Protein 7.9 g/dL (6.4-8.2) Albumin 3.3 g/dL (3.4-5.0) Albumin/Globulin Ratio 0.7 (1.0-1.7) Glucose (Fingerstick) 222 mg/dL (70-99) 155 mg/dL (70-99) Test 06/26/19 11:27 06/26/19 16:50 06/26/19 20:26 06/27/19 03:20 Glucose (Fingerstick) 136 mg/dL (70-99) 167 mg/dL (70-99) 132 mg/dL (70-99) White Blood Count 8.8 x10^3/uL (4.0-11.0) Red Blood Count 4.55 x10^6/uL (3.50-5.40) Hemoglobin 12.8 g/dL (12.0-15.5) Hematocrit 38.4 % (36.0-47.0) Mean Corpuscular Volume 84 fL (79-100) Mean Corpuscular Hemoglobin 28 pg (25-35) Mean Corpuscular Hemoglobin Concent 33 g/dL (31-37) Red Cell Distribution Width 15.4 % (11.5-14.5) Platelet Count 480 x10^3/uL (140-400) Sodium Level 143 mmol/L (136-145) Potassium Level 3.7 mmol/L (3.5-5.1) Chloride Level 106 mmol/L (98-107) Carbon Dioxide Level 28 mmol/L (21-32) Anion Gap 9 (6-14) Blood Urea Nitrogen 8 mg/dL (7-20) Creatinine 0.9 mg/dL (0.6-1.0) Estimated GFR (Cockcroft-Gault) 64.3 Glucose Level 157 mg/dL (70-99) Calcium Level 8.9 mg/dL (8.5-10.1) Test 06/27/19 07:27 06/27/19 11:26 Glucose (Fingerstick) 162 mg/dL (70-99) 187 mg/dL (70-99) Laboratory Tests Test 06/26/19 16:50 06/26/19 20:26 06/27/19 03:20 06/27/19 07:27 Glucose (Fingerstick) 167 mg/dL (70-99) 132 mg/dL (70-99) 162 mg/dL (70-99) White Blood Count 8.8 x10^3/uL (4.0-11.0) Red Blood Count 4.55 x10^6/uL (3.50-5.40) Hemoglobin 12.8 g/dL (12.0-15.5) Hematocrit 38.4 % (36.0-47.0) Mean Corpuscular Volume 84 fL (79-100) Mean Corpuscular Hemoglobin 28 pg (25-35) Mean Corpuscular Hemoglobin Concent 33 g/dL (31-37) Red Cell Distribution Width 15.4 % (11.5-14.5) Platelet Count 480 x10^3/uL (140-400) Sodium Level 143 mmol/L (136-145) Potassium Level 3.7 mmol/L (3.5-5.1) Chloride Level 106 mmol/L (98-107) Carbon Dioxide Level 28 mmol/L (21-32) Anion Gap 9 (6-14) Blood Urea Nitrogen 8 mg/dL (7-20) Creatinine 0.9 mg/dL (0.6-1.0) Estimated GFR (Cockcroft-Gault) 64.3 Glucose Level 157 mg/dL (70-99) Calcium Level 8.9 mg/dL (8.5-10.1) Test 06/27/19 11:26 Glucose (Fingerstick) 187 mg/dL (70-99) Allergies Allergies Coded Allergies Type Severity Reaction Last Updated Verified lisinopril Allergy Severe WELTS 07/07/18 No Sulfa (Sulfonamide Antibiotics) Allergy Intermediate rash 07/07/18 Yes adhesive Allergy Intermediate skin sensitivity 07/07/18 Yes tetracycline Allergy Intermediate rash 07/07/18 Yes amoxicillin trihydrate Adverse Reaction Intermediate vomiting 07/07/18 Yes potassium clavulanate Adverse Reaction Intermediate vomiting 07/07/18 Yes Uncoded Allergies Type Severity Reaction Last Updated Verified PERFUMES Allergy Intermediate ASTHMA ATTACK (AND ANY CHEMICALS CLEANING PRODUCTS) 06/05/18 Disposition/Orders: D/C to Home Patient Instructions d/c planning 24 min Hemodynamically unstable?: No Is patient in severe pain?: No Is NPO status required?: No SILVIA SCHOFIELD MD Jun 27, 2019 12:56
[2019-06-27] MEDS ORDERED: CIPR250T30 PO (12:58)
[2019-06-27] MEDS ORDERED: METR500T PO (12:58)
[2019-06-27] MEDS ORDERED: POLY17PO28 PO (12:58)
[2019-06-27] MEDS ORDERED: METO50TA4 PO (12:58)
--- NOTE | 2019-06-27 13:00 | DISCH ---
DISCHARGE INSTRUCTIONS Condition on Discharge Condition on Discharge: Stable Activity After Discharge Activity Instructions for Disc: Activity as tolerated, Avoid exertion Bathing Instructions: No Tub Bath until see Lifting Instructions after Dis: No heavy lifting, Do not lift >10 pounds Exercise Instruction after Dis: Walk 10 min, 3 x per day Driving Instructions after Dis: Do not drive today Weight Bearing Status after Di: As tolerated Diet after Discharge Diet after Discharge: Cardiac, Diabetic No Calorie Level Liquid Texture: Thin Liquid Wound Incision Care Wound/Incision Care: Ice to area for comfort, May get incision wet Contacting the DRAranza after DC Call your doctor for: If your condition worsens Treatment/Equipment after DC Adaptive Equipment Issued: None Warfarin Follow-Up Warfarin Follow UP: d/c planning 24 min SILVIA SCHOFIELD MD Jun 27, 2019 13:00
--- NOTE | 2019-06-27 14:53 | NUR ---
Pt. discharged to home with Rx electronically transmitted to pharmacy, verbalized understanding of discharge instructions.
[2019-06-27] MEDS ORDERED: CIPROFLOXACIN HCL 250 MG TABLET. PO SCH (21:00)
[2019-06-27] MEDS ORDERED: metroNIDAZOLE 500 MG TABLET PO SCH (21:00)
== END 2019-06-27 14:45 | disposition home or self-care (01) | DRG 392 ==
LOC: ER 15:14 → 4 NORTH 19:46
PROVIDERS: ADMIT Internal Medicine; ATTEND Internal Medicine
DX: K57.32 Diverticulitis of large intestine without perforation or abscess without bleeding (principal); N39.0 Urinary tract infection, site not specified; E03.9 Hypothyroidism, unspecified; E11.9 Type 2 diabetes mellitus without complications; E66.01 Morbid (severe) obesity due to excess calories; E78.5 Hyperlipidemia, unspecified; F41.9 Anxiety disorder, unspecified; G47.33 Obstructive sleep apnea (adult) (pediatric); I10 Essential (primary) hypertension; J45.909 Unspecified asthma, uncomplicated; K21.9 Gastro-esophageal reflux disease without esophagitis; K22.70 Barrett's esophagus without dysplasia; K44.9 Diaphragmatic hernia without obstruction or gangrene; K63.5 Polyp of colon; K64.9 Unspecified hemorrhoids; N20.0 Calculus of kidney; Z80.3 Family history of malignant neoplasm of breast; Z85.048 Personal history of other malignant neoplasm of rectum, rectosigmoid junction, and anus; Z90.49 Acquired absence of other specified parts of digestive tract; Z98.1 Arthrodesis status
CPT/HCPCS: 36415; 74177; 80048; 80053; 81001; 82962; 85025; 85027; 87086; 94760; 99285; J0744; J1815; J1956; J3010; J3490; J7030; J7500; Q9967; G0378

== ENCOUNTER 2020-01-14 11:03 | Emergency (ER) | payer OTHER ==
[~2020-01-14] VITALS: Ht 167.6 cm; Wt 97.7 kg
[~2020-01-14 11:03] MED LIST changes: +CIPR250T30 PO; +GABA600T7 PO; +METO50TA4 PO; +METR500T PO; +POLY17PO28 PO
[2020-01-14] MEDS ORDERED: FAMOTIDINE 20 MG/2 ML VIAL IVP ONE (12:00)
[2020-01-14] MEDS ORDERED: ONDANSETRON PF 4 MG/2 ML VIAL. IVP ONE (12:00)
[2020-01-14] MEDS ORDERED: IV NORMAL SALINE 1000ML BAG 1,000 ML IV ONE (12:00)
[2020-01-14] MEDS ORDERED: MORPHINE SULFATE 4 MG/ML VIAL. IV/SQ PRN (12:00)
--- NOTE | 2020-01-14 12:30 | PHYS DOC ---
Past Medical History Past Medical History: Asthma, Diabetes-Type II, Diverticulitis, Diverticulosis, Hypertension, Hypothyroid, Other Additional Past Medical Histor: lupus Past Surgical History: Cervical Fusion, Cholecystectomy, Oophorectomy, Tonsillectomy Additional Past Surgical Histo: Spinal fusion C 4-6 Smoking Status: Never Smoker Alcohol Use: Rarely Drug Use: None General Adult EDM: Chief Complaint: ABDOMINAL PAIN HPI: HPI: Patient is a 59 year old female with history of hypertension, diabetes type 2, diverticulitis, who presents to the ED today complaining of 6 out of 10 sharp intermittent left lower quadrant abdominal pain and low back pain with nausea that began at 2 AM this morning. Patient also reports fever. Denies any diarrhea or vomiting. She states she has had similar pain in May when she was diagnosed with diverticulitis. Denies anything specifically exacerbating or relieving the pain that she states the nausea was slightly relieved after eating something this morning. Denies any pain radiating to bilateral lower extremities. Denies any loss of bowel/bladder function. Review of Systems: Review of Systems: Constitutional: Denies fever or chills. [] Eyes: Denies change in visual acuity. [] HENT: Denies nasal congestion or sore throat. [] Respiratory: Denies cough or shortness of breath. [] Cardiovascular: Denies chest pain or edema. [] GI: Reports left lower quadrant abdominal pain with nausea, denies, vomiting, bloody stools or diarrhea. [] : Denies dysuria. [] Musculoskeletal: Reports low back pain, denies joint pain. [] Integument: Denies rash. [] Neurologic: Denies headache, focal weakness or sensory changes. [] Endocrine: Denies polyuria or polydipsia. [] Lymphatic: Denies swollen glands. [] Psychiatric: Denies depression or anxiety. [] Heart Score: Risk Factors: Risk Factors: DM, Current or recent (<one month) smoker, HTN, HLP, family history of CAD, obesity. Risk Scores: Score 0 - 3: 2.5% MACE over next 6 weeks - Discharge Home Score 4 - 6: 20.3% MACE over next 6 weeks - Admit for Clinical Observation Score 7 - 10: 72.7% MACE over next 6 weeks - Early Invasive Strategies Current Medications: Current Medications Medications (Trade) Dose Ordered Sig/Jacinto Start Time Stop Time Status Last Admin Dose Admin Famotidine (Pepcid Vial) 20 mg 1X ONCE 01/14/20 12:00 01/14/20 12:01 DC Morphine Sulfate (Morphine Sulfate) 4 mg PRN Q15MIN PRN 01/14/20 12:00 01/15/20 11:59 Ondansetron HCl (Zofran) 4 mg 1X ONCE 01/14/20 12:00 01/14/20 12:01 DC Sodium Chloride 1,000 ml @ 1,000 mls/hr 1X ONCE 01/14/20 12:00 01/14/20 12:59 Allergies: Allergies: Allergies Coded Allergies Type Severity Reaction Last Updated Verified lisinopril Allergy Severe WELTS 07/07/18 No Sulfa (Sulfonamide Antibiotics) Allergy Intermediate rash 07/07/18 Yes adhesive Allergy Intermediate skin sensitivity 07/07/18 Yes tetracycline Allergy Intermediate rash 07/07/18 Yes amoxicillin trihydrate Adverse Reaction Intermediate vomiting 07/07/18 Yes potassium clavulanate Adverse Reaction Intermediate vomiting 07/07/18 Yes Uncoded Allergies Type Severity Reaction Last Updated Verified PERFUMES Allergy Intermediate ASTHMA ATTACK (AND ANY CHEMICALS CLEANING PRODUCTS) 06/05/18 Physical Exam: PE: Constitutional: Well developed, well nourished, no acute distress, non-toxic appearance. [] HENT: Normocephalic, atraumatic, bilateral external ears normal, oropharynx moist, no oral exudates, nose normal. [] Eyes: PERRLA, EOMI, conjunctiva normal, no discharge. [] Neck: Normal range of motion, no tenderness, supple, no stridor. [] Cardiovascular:Heart rate regular rhythm, no murmur [] Lungs & Thorax: Bilateral breath sounds clear to auscultation [] Abdomen: Tenderness on palpation of the left lower quadrant, no right upper quadrant or right lower quadrant tenderness, soft, no tenderness, no masses, no pulsatile masses. No guarding, no rebound pain or tenderness Skin: Warm, dry, no erythema, no rash. [] Back: No tenderness, no CVA tenderness. [] Extremities: No tenderness, no cyanosis, no clubbing, ROM intact, no edema. [] Neurologic: Alert and oriented X 3, normal motor function, normal sensory function, no focal deficits noted. [] Psychologic: Affect normal, judgement normal, mood normal. [] Current Patient Data: Vital Signs: Vital Signs Date Time Temp Pulse Resp B/P (MAP) Pulse Ox O2 Delivery O2 Flow Rate FiO2 01/14/20 11:06 98.8 88 19 134/72 (92) 97 Room Air 98.8 EKG: EKG: [] Radiology/Procedures: Radiology/Procedures: []PROCEDURE: CT ABD PELV W/ IV CONTRST ONLY EXAM: CT Abdomen and Pelvis with IV contrast INDICATION: Reason: LLQ pain hx of diverticulitis / Spl. Instructions: OMNI 300 INJ 75 MLS / History: TECHNIQUE: Multi-detector row CT images were acquired from the lung bases through the abdomen and pelvis with the use of IV contrast. Sagittal and coronal images were acquired from the transaxial data. All CT scans performed at this facility utilize dose optimization techniques as appropriate to the exam, including the following: Automated exposure control and adjustment of the mA and/or KV according to patient size (this includes techniques or standardized protocols for targeted exams where dose is indication/reason for exam). IV CONTRAST: Administered ORAL CONTRAST: Not administered COMPARISON: 06/25/[address] with IV contrast FINDINGS: LOWER CHEST: Unremarkable LIVER: Hepatomegaly with the liver measuring 21.4 cm in length. BILIARY SYSTEM: Gallbladder is surgically absent. Bile ducts are not dilated. PANCREAS: Unremarkable SPLEEN: Unremarkable ADRENALS: Unremarkable KIDNEYS & URETERS: Unremarkable BLADDER: Unremarkable REPRODUCTIVE ORGANS: Unremarkable GASTROINTESTINAL: Similar moderate size hiatal hernia and surgical clips along the greater curvature of the stomach. No findings of bowel obstruction or perforation. Extensive colonic diverticulosis is redemonstrated with mild wall thickening in the sigmoid colon in the setting of under distention. The previously evident pericolonic soft tissue stranding has since resolved. The appendix is normal. MESENTERY/PERITONEUM/RETROPERITONEUM: Unremarkable VASCULAR: Unremarkable LYMPH NODES: No adenopathy OSSEOUS & SOFT TISSUES: Degenerative changes in the upper lumbar spine, notably at L1-L2 and at L2-L3 are again evident. IMPRESSION: Colonic diverticulosis with wall thickening in the sigmoid colon compatible with changes of chronic diverticulitis. Acute inflammation is not clearly shown on this examination. Early acute on chronic diverticulitis however is not excluded. No evidence of bowel perforation or abscess formation. Electronically signed by: Maryam Mares MD (01/14/2020 1:19 PM) [facility] DICTATED and SIGNED BY: MARYAM MARES MD DATE: 01/14/20 7201 Course & Med Decision Making: Course & Med Decision Making Pertinent Labs and Imaging studies reviewed. (See chart for details) This is a 59-year-old female patient with history of diverticulitis presenting to the ED today with left lower quadrant abdominal pain with nausea as well as low back pain. CBC with a WBC of 12.8, CMP with glucose of 273, anion gap is normal. History of diabetes type 2, lactic is normal. Vitals are stable. CT of the abdomen and pelvic was noted for chronic diverticulitis. Patient is afebrile. Was discharged with Cipro and Flagyl. She already follows up with Dr. Nye. Provided return precautions and discharged in stable condition. Dragon Disclaimer: Dragon Disclaimer: This electronic medical record was generated, in whole or in part, using a voice recognition dictation system. Departure Departure Impression: Primary Impression: Diverticulitis Disposition: 01 HOME, SELF-CARE Condition: STABLE Referrals: JONATHON LADD MD (PCP) MATEUS NYE MD follow up in 1 week Patient Instructions: Diverticulitis, [id number] Additional Instructions: Your CAT scan of the abdomen and pelvic was noted for chronic diverticulitis. Take the prescribed medications as ordered. Follow-up with Dr. yNe in the next 7 days as well as your primary care doctor. Please return to the ED at any point symptoms worsen Scripts Hydrocodone/Apap 5-325 (NORCO 5-325 TABLET) 1 Each Tablet 1 TAB PO Q6-8HRS PRN for PAIN, #20 TAB Prov: AGGIE FREEMAN APRN 01/14/20 Ciprofloxacin Hcl (CIPRO) 500 Mg Tablet 1 TAB PO BID for 10 Days, #20 TAB 0 Refills Prov: AGGIE FREEMAN APRN 01/14/20 Metronidazole (FLAGYL) 500 Mg Tablet 500 MG PO TID, #30 TAB Prov: AGGIE FREEMAN APRN 01/14/20 Ondansetron (ONDANSETRON ODT) 4 Mg Tab.rapdis 1 TAB PO PRN Q6-8HRS, #16 TAB Prov: AGGIE FREEMAN APRN 01/14/20 Justicifation of Admission Dx: Justifications for Admission: Justification of Admission Dx: N/A AGGIE FREEMAN APRN Jan 14, 2020 12:30
[2020-01-14 12:32] LABS: BASO # 0.1 x10^3/uL (0.0-0.2); BASO % 1 % (0-3); EOS # 0.5 x10^3/uL (0.0-0.7); EOS % 4 % (0-3); HEMATOCRIT 39.7 % (36.0-47.0); HEMOGLOBIN 13.3 g/dL (12.0-15.5); LYMPH # 1.4 x10^3/uL (1.0-4.8); LYMPH % 11 % (24-48); MEAN CORPUSCULAR HEMOGLOBIN 29 pg (25-35); MEAN CORPUSCULAR HGB CONC 34 g/dL (31-37); MEAN CORPUSCULAR VOLUME 86 fL (79-100); MONO # 0.9 x10^3/uL (0.0-1.1); MONO % 7 % (0-9); NEUT # 9.9 x10^3/uL (1.8-7.7); NEUT % 77 % (31-73); PLATELET COUNT 510 x10^3/uL (140-400); RED BLOOD COUNT 4.64 x10^6/uL (3.50-5.40); WHITE BLOOD COUNT 12.8 x10^3/uL (4.0-11.0)
[2020-01-14 12:38] LABS: BARBITURATES NEG (NEG); BENZODIAZEPINES NEG (NEG); CANNABINOIDS POS (NEG); COCAINE NEG (NEG); METHADONE NEG (NEG); OPIATES NEG (NEG); PHENCYCLIDINE NEG (NEG)
[2020-01-14 12:40] LABS: AMPHETAMINE/METHAMPHETAMINE NEG (NEG)
[2020-01-14 12:40] LABS: CALCIUM 8.6 mg/dL (8.5-10.1); CREATININE 0.8 mg/dL (0.6-1.0); GFR 73.4; POTASSIUM 3.6 mmol/L (3.5-5.1)
[2020-01-14 12:45] LABS: ALBUMIN 2.9 g/dL (3.4-5.0); ALBUMIN/GLOBULIN RATIO 0.7 (1.0-1.7); TOTAL BILIRUBIN 0.4 mg/dL (0.2-1.0); TOTAL PROTEIN 6.9 g/dL (6.4-8.2)
[2020-01-14] MEDS ORDERED: IOHEXOL 300 MG/ML 100ML VIAL. IV ONE (12:45)
[2020-01-14] MEDS ORDERED: CONTRAST GIVEN. MC PRN (13:00)
--- NOTE | 2020-01-14 13:22 | RAD ---
EXAM: CT Abdomen and Pelvis with IV contrast INDICATION: Reason: LLQ pain hx of diverticulitis / Spl. Instructions: OMNI 300 INJ 75 MLS / History: TECHNIQUE: Multi-detector row CT images were acquired from the lung bases through the abdomen and pelvis with the use of IV contrast. Sagittal and coronal images were acquired from the transaxial data. All CT scans performed at this facility utilize dose optimization techniques as appropriate to the exam, including the following: Automated exposure control and adjustment of the mA and/or KV according to patient size (this includes techniques or standardized protocols for targeted exams where dose is indication/reason for exam). IV CONTRAST: Administered ORAL CONTRAST: Not administered COMPARISON: 06/25/[address] with IV contrast FINDINGS: LOWER CHEST: Unremarkable LIVER: Hepatomegaly with the liver measuring 21.4 cm in length. BILIARY SYSTEM: Gallbladder is surgically absent. Bile ducts are not dilated. PANCREAS: Unremarkable SPLEEN: Unremarkable ADRENALS: Unremarkable KIDNEYS & URETERS: Unremarkable BLADDER: Unremarkable REPRODUCTIVE ORGANS: Unremarkable GASTROINTESTINAL: Similar moderate size hiatal hernia and surgical clips along the greater curvature of the stomach. No findings of bowel obstruction or perforation. Extensive colonic diverticulosis is redemonstrated with mild wall thickening in the sigmoid colon in the setting of under distention. The previously evident pericolonic soft tissue stranding has since resolved. The appendix is normal. MESENTERY/PERITONEUM/RETROPERITONEUM: Unremarkable VASCULAR: Unremarkable LYMPH NODES: No adenopathy OSSEOUS & SOFT TISSUES: Degenerative changes in the upper lumbar spine, notably at L1-L2 and at L2-L3 are again evident. IMPRESSION: Colonic diverticulosis with wall thickening in the sigmoid colon compatible with changes of chronic diverticulitis. Acute inflammation is not clearly shown on this examination. Early acute on chronic diverticulitis however is not excluded. No evidence of bowel perforation or abscess formation. Electronically signed by: Steve Mares MD (01/14/2020 1:19 PM) [facility] [place]
[2020-01-14 14:10] LABS: % BANDS 2 % (0-9); % BASOS 1 % (0-3); % EOS 2 % (0-5); % LYMPHS 18 % (24-48); % MONOS 5 % (0-10); % SEGS 72 % (35-66); PLT ESTIMATE INCREASED (ADEQUATE)
[2020-01-14] MEDS ORDERED: CIPR500T94 PO (14:10)
[2020-01-14] MEDS ORDERED: METR500T PO (14:10)
[2020-01-14] MEDS ORDERED: ONDA4TAB12 PO (14:10)
[2020-01-14] MEDS ORDERED: HYDR-3164 PO (14:10)
[2020-01-14] MEDS ORDERED: metroNIDAZOLE 500 MG TABLET PO ONE (14:15)
[2020-01-14] MEDS ORDERED: CIPROFLOXACIN HCL 250 MG TABLET. PO ONE (14:15)
[2020-01-14 14:17] VITALS: BP 111/65
== END 2020-01-14 14:52 | disposition home or self-care (01) ==
LOC: ER 11:03
DX: K57.32 Diverticulitis of large intestine without perforation or abscess without bleeding (principal); K38.2 Diverticulum of appendix; R10.32 Left lower quadrant pain; M54.5 Low back pain; R11.0 Nausea; J45.909 Unspecified asthma, uncomplicated; E11.9 Type 2 diabetes mellitus without complications; I10 Essential (primary) hypertension; E03.9 Hypothyroidism, unspecified; Z90.49 Acquired absence of other specified parts of digestive tract; Z90.89 Acquired absence of other organs; Z98.890 Other specified postprocedural states; Z88.2 Allergy status to sulfonamides; Z88.1 Allergy status to other antibiotic agents; Z88.8 Allergy status to other drugs, medicaments and biological substances
CPT/HCPCS: 36415; 74177; 80053; 80307; 82962; 83605; 83690; 84145; 85007; 85025; 87040; 96361; 96374; 96375; 99285; G0480; J2270; J2405; J3490; J7030; Q9967

== ENCOUNTER 2020-06-26 13:35 | Emergency (ER) | payer OTHER ==
[~2020-06-26] VITALS: Ht 167.6 cm; Wt 97.7 kg
[~2020-06-26 13:35] MED LIST changes: +CIPR500T94 PO; +HYDR-3164 PO; +ONDA4TAB12 PO
[2020-06-26 14:21] LABS: BASO # 0.1 x10^3/uL (0.0-0.2); BASO % 2 % (0-3); EOS # 0.8 x10^3/uL (0.0-0.7); EOS % 8 % (0-3); HEMATOCRIT 41.5 % (36.0-47.0); LYMPH # 1.5 x10^3/uL (1.0-4.8); LYMPH % 15 % (24-48); MEAN CORPUSCULAR HEMOGLOBIN 29 pg (25-35); MEAN CORPUSCULAR HGB CONC 34 g/dL (31-37); MEAN CORPUSCULAR VOLUME 85 fL (79-100); MONO # 0.7 x10^3/uL (0.0-1.1); MONO % 7 % (0-9); NEUT # 6.7 x10^3/uL (1.8-7.7); NEUT % 69 % (31-73); PLATELET COUNT 536 x10^3/uL (140-400); RED BLOOD COUNT 4.87 x10^6/uL (3.50-5.40); RED CELL DISTRIBUTION WIDTH 14.6 % (11.5-14.5); WHITE BLOOD COUNT 9.7 x10^3/uL (4.0-11.0)
[2020-06-26 14:21] LABS: BILIRUBIN,URINE NEGATIVE (NEG); CLARITY,URINE CLEAR; COLOR,URINE YELLOW; NITRITE,URINE NEGATIVE (NEG); PH,URINE 7.5 (<5.0-8.0); PROTEIN,URINE NEGATIVE (NEG-TRACE); UROBILINOGEN,URINE 0.2 mg/dL (0.2 mg/dL)
[2020-06-26 14:23] LABS: CALCIUM 9.1 mg/dL (8.5-10.1); CREATININE 0.9 mg/dL (0.6-1.0); GFR 64.1; POTASSIUM 3.7 mmol/L (3.5-5.1)
[2020-06-26 14:30] LABS: ALBUMIN 3.6 g/dL (3.4-5.0); ALBUMIN/GLOBULIN RATIO 0.8 (1.0-1.7); TOTAL BILIRUBIN 0.4 mg/dL (0.2-1.0)
[2020-06-26 14:31] LABS: BACTERIA,URINE MODERATE /HPF (0-FEW)
[2020-06-26 14:32] LABS: RBC,URINE RARE /HPF (0-2); WBC,URINE RARE /HPF (0-4)
[2020-06-26] MEDS ORDERED: IOHEXOL 300 MG/ML 100ML VIAL. IV ONE (14:45)
[2020-06-26] MEDS ORDERED: CONTRAST GIVEN. MC PRN (14:45)
[2020-06-26 14:56] VITALS: BP 120/68
--- NOTE | 2020-06-26 15:19 | RAD ---
CT SCAN OF THE ABDOMEN AND PELVIS WITH IV CONTRAST. History: Abdominal pain Comparison:January 14, 2020. Procedure: Contiguous axial images of the abdomen and pelvis were performed after the administration of 75 cc o f Omni 300 IV contrast. Oral contrast: No. Findings: There is a moderate size hiatal hernia. There are surgical clips around the proximal stomach. The appendix is normal. There is evidence of prior cholecystectomy. Liver: Unremarkable Spleen: Unremarkable Pancreas: Unremarkable Adrenal Glands: Unremarkable Kidneys: Unremarkable There is no mass or lymphadenopathy. There is no free air. There is no free fluid. The urinary bladder is mostly collapsed. Apparent moderate wall thickening is likely hypertrophy. Impression: No acute findings. PQRS Compliance Statement: One or more of the following individualized dose reduction techniques were utilized for this examinat ion: 1. Automated exposure control 2. Adjustment of the mA and/or kV according to patient size 3. Use of iterative reconstruction technique Electronically signed by: Jeff Canada III, MD (06/26/2020 3:16 PM) [facility]
--- NOTE | 2020-06-26 15:27 | PHYS DOC ---
Past Medical History Past Medical History: Asthma, Diabetes-Type II, Diverticulitis, Diverticulosis, Hypertension, Hypothyroid, Other Additional Past Medical Histor: lupus Past Surgical History: Cervical Fusion, Cholecystectomy, Oophorectomy, Tonsillectomy Additional Past Surgical Histo: Spinal fusion C 4-6 Smoking Status: Never Smoker Alcohol Use: Rarely Drug Use: None General Adult EDM: Chief Complaint: ABDOMINAL PAIN HPI: HPI: 59 yo F past medical history of asthma, hypertension, hypothyroidism and history of diverticulosis with flareup in the past 6 months, presents to the ED with complaints of bilateral lower abdominal pain (worse in LLQ than RLQ) with right flank pain and nausea x5 days, reports 2 episodes of diarrhea yesterday but describes diarrhea as brown, formed, loose stools. Saw her primary care physician for this and was started on Levaquin and Flagyl. Came to the ED because she took 1 dose of antibiotics last night and abdominal pain has persisted, she asks " isn't there is something stronger than these antibiotics that could work faster?" Patient is concerned she is having a diverticulitis flareup. Hasn't taken anything for the pain. Does report increased urinary frequency and urgency. No history of kidney stones, fever/chills, melena, hematochezia or hematemesis. Review of Systems: Review of Systems: Constitutional: Denies fever or chills. [] Eyes: Denies change in visual acuity. [] HENT: Denies nasal congestion or sore throat. [] Respiratory: Denies cough or shortness of breath. [] Cardiovascular: Denies chest pain or edema. [] GI: Denies melena, hematochezia, hematemesis or constipation : Denies dysuria, suprapubic pressure or hematuria Musculoskeletal: Denies back pain or joint pain. [] Integument: Denies rash or diaphoresis Neurologic: Denies headache, neck stiffness, focal weakness or sensory changes. [] Endocrine: Denies polyuria or polydipsia. [] Lymphatic: Denies swollen glands. [] Psychiatric: Denies depression or anxiety. [] Heart Score: Risk Factors: Risk Factors: DM, Current or recent (<one month) smoker, HTN, HLP, family history of CAD, obesity. Risk Scores: Score 0 - 3: 2.5% MACE over next 6 weeks - Discharge Home Score 4 - 6: 20.3% MACE over next 6 weeks - Admit for Clinical Observation Score 7 - 10: 72.7% MACE over next 6 weeks - Early Invasive Strategies Current Medications: Current Medications Medications (Trade) Dose Ordered Sig/Jacinto Start Time Stop Time Status Last Admin Dose Admin Info (CONTRAST GIVEN -- Rx MONITORING) 1 each PRN DAILY PRN 06/26/20 14:45 06/28/20 14:44 Iohexol (Omnipaque 300 Mg/ml) 75 ml 1X ONCE 06/26/20 14:45 06/26/20 14:46 DC 06/26/20 14:48 75 ML Allergies: Allergies: Allergies Coded Allergies Type Severity Reaction Last Updated Verified lisinopril Allergy Severe WELTS 07/07/18 No Sulfa (Sulfonamide Antibiotics) Allergy Intermediate rash 07/07/18 Yes adhesive Allergy Intermediate skin sensitivity 07/07/18 Yes tetracycline Allergy Intermediate rash 07/07/18 Yes amoxicillin trihydrate Adverse Reaction Intermediate vomiting 07/07/18 Yes potassium clavulanate Adverse Reaction Intermediate vomiting 07/07/18 Yes Uncoded Allergies Type Severity Reaction Last Updated Verified PERFUMES Allergy Intermediate ASTHMA ATTACK (AND ANY CHEMICALS CLEANING PRODUCTS) 06/05/18 Physical Exam: PE: Constitutional: Well developed, well nourished, no acute distress, non-toxic appearance. HENT: Normocephalic, atraumatic, Eyes: EOMI, conjunctiva normal, no discharge. Neck: Normal range of motion, supple, Cardiovascular: S1/2 present, regular rhythm Lungs & Thorax: Speaking in full sentences, bilateral equal chest rise, no tachypnea or increased work of breathing Abdomen: soft, mild discomfort in lower abdomen, worse in left lower quadrant but patient has no rigidity, guarding or peritonitis, tolerates abdominal exam Skin: Warm, dry, no erythema, no rash. [] Back: No tenderness, right CVA tenderness. [] Extremities: No tenderness, no cyanosis, no edema Neurologic: Alert and oriented X 3, normal motor function, normal sensory function, no focal deficits noted. [] Psychologic: Affect normal, judgement normal, mood normal. [] Current Patient Data: Labs: Laboratory Tests Test 06/26/20 13:54 06/26/20 14:00 White Blood Count 9.7 x10^3/uL (4.0-11.0) Red Blood Count 4.87 x10^6/uL (3.50-5.40) Hemoglobin 14.0 g/dL (12.0-15.5) Hematocrit 41.5 % (36.0-47.0) Mean Corpuscular Volume 85 fL (79-100) Mean Corpuscular Hemoglobin 29 pg (25-35) Mean Corpuscular Hemoglobin Concent 34 g/dL (31-37) Red Cell Distribution Width 14.6 % (11.5-14.5) H Platelet Count 536 x10^3/uL (140-400) H Neutrophils (%) (Auto) 69 % (31-73) Lymphocytes (%) (Auto) 15 % (24-48) L Monocytes (%) (Auto) 7 % (0-9) Eosinophils (%) (Auto) 8 % (0-3) H Basophils (%) (Auto) 2 % (0-3) Neutrophils # (Auto) 6.7 x10^3/uL (1.8-7.7) Lymphocytes # (Auto) 1.5 x10^3/uL (1.0-4.8) Monocytes # (Auto) 0.7 x10^3/uL (0.0-1.1) Eosinophils # (Auto) 0.8 x10^3/uL (0.0-0.7) H Basophils # (Auto) 0.1 x10^3/uL (0.0-0.2) Sodium Level 137 mmol/L (136-145) Potassium Level 3.7 mmol/L (3.5-5.1) Chloride Level 100 mmol/L (98-107) Carbon Dioxide Level 27 mmol/L (21-32) Anion Gap 10 (6-14) Blood Urea Nitrogen 10 mg/dL (7-20) Creatinine 0.9 mg/dL (0.6-1.0) Estimated GFR (Cockcroft-Gault) 64.1 BUN/Creatinine Ratio 11 (6-20) Glucose Level 202 mg/dL (70-99) H Calcium Level 9.1 mg/dL (8.5-10.1) Total Bilirubin 0.4 mg/dL (0.2-1.0) Aspartate Amino Transferase (AST) 17 U/L (15-37) Alanine Aminotransferase (ALT) 26 U/L (14-59) Alkaline Phosphatase 102 U/L (46-116) Creatine Kinase 44 U/L (26-192) Total Protein 8.0 g/dL (6.4-8.2) Albumin 3.6 g/dL (3.4-5.0) Albumin/Globulin Ratio 0.8 (1.0-1.7) L Lipase 87 U/L (73-393) Urine Collection Type Unknown Urine Color Yellow Urine Clarity Clear Urine pH 7.5 (<5.0-8.0) Urine Specific [place] 1.010 (1.000-1.030) Urine Protein Negative mg/dL (NEG-TRACE) Urine Glucose (UA) Negative mg/dL (NEG) Urine Ketones (Stick) Negative mg/dL (NEG) Urine Blood Negative (NEG) Urine Nitrite Negative (NEG) Urine Bilirubin Negative (NEG) Urine Urobilinogen Dipstick 0.2 mg/dL (0.2 mg/dL) Urine Leukocyte Esterase Small (NEG) Urine RBC Rare /HPF (0-2) Urine WBC Rare /HPF (0-4) Urine Squamous Epithelial Cells Mod /LPF Urine Bacteria Moderate /HPF (0-FEW) Laboratory Tests 06/26/20 13:54 Laboratory Tests 06/26/20 13:54 Vital Signs: Vital Signs Date Time Temp Pulse Resp B/P (MAP) Pulse Ox O2 Delivery O2 Flow Rate FiO2 06/26/20 14:56 66 120/68 (85) 97 Room Air 06/26/20 13:45 98.1 20 98.1 EKG: EKG: [] Radiology/Procedures: Radiology/Procedures: []IMAGING REPORT Signed PATIENT: ARIAS THOMPSON ACCOUNT: [id number] : 1960 LOCATION: ER AGE: 59 SEX: F EXAM STATUS: REG ER ORD. PHYSICIAN: JENNIFER BERUMEN DO REASON: abd pain PROCEDURE: CT ABD PELV W/ IV CONTRST ONLY CT SCAN OF THE ABDOMEN AND PELVIS WITH IV CONTRAST. History: Abdominal pain Comparison:January 14, 2020. Procedure: Contiguous axial images of the abdomen and pelvis were performed after the administration of 75 cc of Omni 300 IV contrast. Oral contrast: No. Findings: There is a moderate size hiatal hernia. There are surgical clips around the proximal stomach. The appendix is normal. There is evidence of prior cholecystectomy. Liver: Unremarkable Spleen: Unremarkable Pancreas: Unremarkable Adrenal Glands: Unremarkable Kidneys: Unremarkable There is no mass or lymphadenopathy. There is no free air. There is no free fluid. The urinary bladder is mostly collapsed. Apparent moderate wall thickening is likely hypertrophy. Impression: No acute findings. PQRS Compliance Statement: One or more of the following individualized dose reduction techniques were utilized for this examination: 1. Automated exposure control 2. Adjustment of the mA and/or kV according to patient size 3. Use of iterative reconstruction technique Electronically signed by: Jung Reed III, MD (06/26/2020 3:16 PM) [facility] DICTATED and SIGNED BY: JUNG REED III, MD DATE: 06/26/20 [id number] 0 Course & Med Decision Making: Course & Med Decision Making Pertinent Labs and Imaging studies reviewed. (See chart for details) Concern for lower abdominal pain with nausea increased urinary frequency/urgency. CT findings are unremarkable -this is consistent with patient's abdominal exam. Patient afebrile with no leukocytosis. Patient is currently taking Levaquin and Flagyl which she started yesterday has only taken 1 dose. This should cover for UTI-u/a contaminated. Pt encouraged to continue her abx and use apap/motrin prn for pain. Will discharge home with strict ED return precautions were given for fever, worsening pain, dehydration, nausea or vomiting. Encouraged urgent outpatient follow-up with PMD for repeat urinalysis in 10 days. Life-threatening processes were considered but are low suspicion at this time, given history, physical exam and ED workup. Pt was educated on all prescription medications and adverse effects. All patient's questions were answered and pt was stable at time of discharge. Life/limb-threatening differential includes but is not limited to, aortic dissection, aortic aneurysm, acute coronary syndrome, surgical abdomen (appendicitis, cholecystitis, ischemic bowel, strangulated hernia, etc), bowel obstruction or volvulus, bladder outlet obstruction, gastrointestinal bleeding, inflammatory bowel disease, peptic ulcer disease, ACS/CAD, sepsis, diverticular disease, ureterolithiasis, nephrolithiasis, ovarian or testicular torsion, ectopic , vaginal hemorrhage, or genitourinary infection. I spoken with the patient and her caregivers. I explained the patient's condition, diagnoses and treatment plan based on the information available to me at this time. I have answered the patient and her caregiver's questions and addressed any concerns. The patient and her caregivers have a good understanding of patient's diagnosis, condition and treatment plan as can be expected at this point. Vital signs have been stable. Patient's condition is stable and appropriate for discharge from the emergency department. Patient will pursue further outpatient evaluation with primary care physician or other designated or consulting physician as outlined in the discharge instru ctions. The patient and/or caregivers are agreeable to this plan of care and follow-up instructions have been explained in detail. The patient and/or caregivers have received these instructions in written form and have expressed an understanding of the discharge instructions. The patient and/or caregivers are aware that any significant change of condition or worsening of symptoms should prompt immediate return to this or the closest emergency department or call to 911. Tiffany Disclaimer: Tiffany Disclaimer: This electronic medical record was generated, in whole or in part, using a voice recognition dictation system. Departure Departure Impression: Primary Impression: Abdominal pain Additional Impression: UTI (urinary tract infection) Disposition: 01 DC HOME SELF CARE/HOMELESS Condition: STABLE Referrals: JONATHON LADD MD (PCP) repeat urinalysis in 10 days primary care physician Patient Instructions: Abdominal Pain, Urinary Tract Infection Additional Instructions: EMERGENCY DEPARTMENT GENERAL DISCHARGE INSTRUCTIONS Thank you for coming to [facility] Emergency Department (ED) today and trusting us with you care. We trust that you had a positive experience in our Emergency Department. If you wish to speak to the department management, you may call the Director at [phone]. YOUR FOLLOW UP INSTRUCTIONS ARE FOLLOWS: 1. Do you have a private Doctor? If you do not have a private doctor, please ask for a resource list of physicians or clinics that may be able to assist you with follow up care. 2. The Emergency Physicain has interpreted your x-rays. The X-Ray specialist will also review them. If there is a change in the findings, you will be notified in 48 hours when at all possible. 3. A lab test or culture has been done, your results will be reviewed and you will be notified if you need a change in treatment. ADDITIONAL INSTRUCTIONS AND INFORMATION: 1. Your care today has been supervised by a physician who is specially trained in emergency care. Many problems require more than one evaluation for a complete diagnosis and treatment. We recommend that you schedule your follow up appointment as recommended to ensure complete treatment of you illness or injury. If you are unable to obtain follow up care and continue to have a problem, or if your condition worsens, we recommend that you return to the ED. 2. We are not able to safely determine your condition over the phone nor are we able to give sound medical advice over the phone. For these safety reasons, if you call for medical advice we will ask you to come to the ED for further evaluation. 3. If you have any questions regarding these discharge instructions please call the ED at [phone]. SAFETY INFORMATION: In the interest of safety, wellness, and injury prevention; we encourage you to wear your sealbelt, if you smoke; quite smoking, and we encourage family to use a protective helmet for bicycling and other sporting events that present an increased risk for head injury. IF YOUR SYMPTOMS WORSEN OR NEW SYMPTOMS DEVELOP, OR YOU HAVE CONCERNS ABOUT YOUR CONDITION; OR IF YOUR CONDITION WORSENS WHILE YOU ARE WAITING FOR YOUR FOLLOW UP APPOINTMENT; EITHER CONTACT YOUR PRIMARY CARE DOCTOR, THE PHYSICIAN WHOSE NAME AND NUMBER YOU WERE GIVEN, OR RETURN TO THE ED IMMEDIATELY. JENNIFER THAKKAR DO Jun 26, 2020 15:27
[2020-06-26] MEDS ORDERED: KETOROLAC 15 MG/ML VIAL. IVP ONE (15:30)
[2020-06-26] MEDS ORDERED: AZITHROMYCIN 250 MG TABLET. PO ONE (16:00)
== END 2020-06-26 15:48 | disposition home or self-care (01) ==
LOC: ER 13:35
DX: N39.0 Urinary tract infection, site not specified (principal); R10.32 Left lower quadrant pain; R10.31 Right lower quadrant pain; R19.7 Diarrhea, unspecified; J45.909 Unspecified asthma, uncomplicated; E11.9 Type 2 diabetes mellitus without complications; I10 Essential (primary) hypertension; E03.9 Hypothyroidism, unspecified; Z98.890 Other specified postprocedural states; Z90.49 Acquired absence of other specified parts of digestive tract; Z88.1 Allergy status to other antibiotic agents; Z88.8 Allergy status to other drugs, medicaments and biological substances; Z88.6 Allergy status to analgesic agent; Z88.2 Allergy status to sulfonamides
CPT/HCPCS: 36415; 74177; 80053; 81001; 82550; 83690; 85025; 87086; 96374; 99285; J1885; Q9967

== ENCOUNTER → 2020-08-07 | Outpatient (CLI) | payer OTHER ==
[~2020-08-07] MED LIST changes: -POLY17PO28 PO; +POLY17PO52 PO
[2020-08-07] MEDS: REGADENOSON 0.4 MG/5 ML DISP.SYRIN. IV ONE (11:41)
--- NOTE | 2020-08-07 17:44 | RAD ---
MR#: [id number] Date of Study: 08/07/2020 Ordering Physician: ELIDA CRISOSTOMO, Referring Physician: PAULINA LO Tech: ALFREDO Zavala APPROVED REPORT Test Type: Pharmacological Stress Nurse/Tech: Moy Hernandez RN Test Indications: dyspnea on exertion, rapid heart rate Cardiac History: asthma, HTN, DM Medications: See Electronic Medical Record Medical History: See Electronic Medical Record Resting ECG: SR Resting Heart Rate: 75 bpm Resting Blood Pressure: 111/67mmHg Pretest Chest Pain: None Nurse/Tech Notes lungs CTA, S1S2 Consent: The procedure was explained to the patient in lay terms. Informed consent was witnessed. Ambrocio eout was entered into [employer]. History and Stress Test performed by RT Williams (R) (N) Pharm. Details Pharmacologic stress testing was performed using 0.4mg per 5ml of regadenoson given intravenously ove r 7-10 seconds. Stress Symptoms Dyspnea POST EXERCISE Reason for Termination: Infusion complete Target HR: 96 Max Blood Pressure: 97/61mmHg Blood Pressure response to exercise: Normal blood pressure response during stress. Heart Rate response to exercise: normal response Chest Pain: No. Arrhythmia: No. ST Change: No. INTERPRETATION Stress EKG Conclusion: The resting EKG shows a sinus rhythm with mild nonspecific ST segment changes. The stress EKG shows no significant changes from baseline. No EKG evidence of stress-induced ischemia. Imaging Protocol IMAGE PROTOCOL: Rest Tc-99m/stress Tc-99m 1 day Rest: Stress: Viability: Radiopharm.Tc99m [id number] Sestamibi Dose10.6mCi 31mCi Duration 15min. 13min. Img Date 08/07/2020 08/07/2020 Inj-Img [id number]. 60min. Rest Admin Site:IV - Left AntecubitalAdministrator:RT Williams (R)(N) Stress Admin Site: IV - Left AntecubitalAdministrator: RADHA Johnson, ARRT (R)(N) STRESS DATA End Diast. Vol.64.0mlLVEDV index BSA31.0ml End Syst. Vol.16.0mlLVESV index BSA8.0ml Myocardial Bwon691.0gEject. Tklkeiur08.0% Stress Scores Regional WT1.00Summed WT17.00 Regional WM0.00Summed WM1.00 LV Perfusion The stress scans showed no significant defects. The rest scans showed no significant defects. Nuclear imaging shows no reversible ischemia or infarct. Wall Motion Left ventricular systolic function is normal with an ejection fraction of greater than 70%. LV Perf. Quant 17 Seg. SSS2.00 17 Seg. SRS1.00 17 Seg. SDS1.00 Stress Defect Extent (% LAD)0.00Rest Defect Extent (% LAD)0.00Rev. Defect Extent (% LAD)0.00 Stress Defect Extent (% LCX) 17.50Rest Defect Extent (% LCX)8.80Rev. Defect Extent (% LCX)0.00 Stress Defect Extent (% RCA)0.00Rest Defect Extent (% RCA)0.00Rev. Defect Extent (% RCA)0.00 Stress Defect Extent (% LADARIUS)4.60Rest Defect Extent (% LADARIUS)1.50Rev. Defect Extent (% LADARIUS)0.70 IMPRESSION Comparison of Rest to Stress Regional Wall Thickening: No Change, Normal, Mildly Decreased Wall Thic kening, Moderately Decreased Wall Thickening, Severely Decreased Wall Thickening, Hyperdynamic Wall T hickening Conclusion 1. No EKG evidence of stress-induced ischemia. 2. Nuclear imaging shows no reversible ischemia or infarct. 3. Normal left ventricular systolic function with an ejection fraction of greater than 70%. 4. Low risk Lexiscan nuclear stress test. Signed by : Elida Crisostomo MD Electronically Approved : 08/07/2020 17:43:32
== END ==
LOC: NM 09:44
PROVIDERS: ATTEND Internal Medicine Cardiovascular Disease
DX: I10 Essential (primary) hypertension (principal)
CPT/HCPCS: 78452; 93017; A9500; J2785

== ENCOUNTER 2020-11-28 09:16 | Emergency (ER) | payer OTHER ==
[~2020-11-28] VITALS: Ht 165.1 cm; Wt 100.0 kg
--- NOTE | 2020-11-28 09:44 | ED.ADGEN ---
Past Medical History Past Medical History: Asthma, Diabetes-Type II, Diverticulitis, Diverticulosis, Hypertension, Hypothyroid, Other Additional Past Medical Histor: lupus Past Surgical History: Cervical Fusion, Cholecystectomy, Oophorectomy, Tonsillectomy Additional Past Surgical Histo: Spinal fusion C 4-6 Smoking Status: Never Smoker Alcohol Use: Rarely Drug Use: None General Adult EDM: Chief Complaint: ANIMAL BITE HPI: HPI: Patient is a 59 year old female coming in for cat bite to the dorsum of her left hand that happened 7 hours prior to arrival. Patient states she went to break up a cat fight on her porch. Patient states that her cat and a stray in the neighborhood got into a fight and one of the cats bit the back of her hand. Patient is unsure if it was her cat or the stray as they look similar and it occurred at night. Patient states she has seen the cat around the neighborhood frequently. Patient states her cat has had its rabies vaccinations. Last tetanus about 7 years ago. Patient denies any systemic complaints but has a history of lupus and multiple antibiotic allergies. Review of Systems: Review of Systems: All other systems within normal limits except for as noted in the HPI Current Medications: Current Medications Medications (Trade) Dose Ordered Sig/Jacinto Start Time Stop Time Status Last Admin Dose Admin Ciprofloxacin (Cipro) 500 mg 1X ONCE 11/28/20 10:00 11/28/20 10:01 DC Clindamycin HCl (Cleocin) 450 mg 1X ONCE 11/28/20 10:00 11/28/20 10:01 DC Diphtheria/ Tetanus/Acell Pertussis (ADACEL TDap SYRINGE) 0.5 ml ONCE ONCE 11/28/20 10:00 11/28/20 10:01 DC Allergies: Allergies: Allergies Coded Allergies Type Severity Reaction Last Updated Verified lisinopril Allergy Severe WELTS 07/07/18 No Sulfa (Sulfonamide Antibiotics) Allergy Intermediate rash 07/07/18 Yes adhesive Allergy Intermediate skin sensitivity 07/07/18 Yes tetracycline Allergy Intermediate rash 07/07/18 Yes clindamycin Allergy Unknown UNKNOWN 11/28/20 Yes amoxicillin trihydrate Adverse Reaction Intermediate vomiting 07/07/18 Yes potassium clavulanate Adverse Reaction Intermediate vomiting 07/07/18 Yes Uncoded Allergies Type Severity Reaction Last Updated Verified PERFUMES Allergy Intermediate ASTHMA ATTACK (AND ANY CHEMICALS CLEANING PRODUCTS) 06/05/18 Physical Exam: PE: Constitutional: Well developed, well nourished, no acute distress, non-toxic appearance. [] HENT: Normocephalic, atraumatic, bilateral external ears normal, nose normal. [] Eyes: PERRLA, conjunctiva normal, no discharge. [] Neck: No rigidity, supple, no stridor. [] Cardiovascular: Regular rate and rhythm, brisk cap refill [] Lungs & Thorax: Non labored symmetric respirations, no tachypnea or respiratory distress [] Abdomen: Soft, nondistended. Skin: Warm, dry, no erythema, no rash. 4 superficial scratches to dorsum of left hand [] Back: Unremarkable Extremities: No deformities, range of motion grossly intact, no lower extremity edema. Mild edema of the dorsum of the left hands, no fluctuance, range of motion intact. No lesions overlying joints [] Neurologic: Alert and oriented X 3, no focal deficits noted. [] Psychologic: Affect normal, judgement normal, mood normal. [] Current Patient Data: Vital Signs: Vital Signs Date Time Temp Pulse Resp B/P (MAP) Pulse Ox O2 Delivery O2 Flow Rate FiO2 11/28/20 09:21 98.5 100 19 145/90 (108) 95 Room Air 98.5 EKG: EKG: [] Heart Score: C/O Chest Pain: No Risk Factors: Risk Factors: DM, Current or recent (<one month) smoker, HTN, HLP, family history of CAD, obesity. Risk Scores: Score 0 - 3: 2.5% MACE over next 6 weeks - Discharge Home Score 4 - 6: 20.3% MACE over next 6 weeks - Admit for Clinical Observation Score 7 - 10: 72.7% MACE over next 6 weeks - Early Invasive Strategies Radiology/Procedures: Radiology/Procedures: [facility] [address] [place] [address] IMAGING REPORT Signed PATIENT: ARIAS THOMPSON ACCOUNT: [id number] : 1960 LOCATION: ER AGE: 59 SEX: F EXAM STATUS: REG ER ORD. PHYSICIAN: NAVEED LOAIZA MD REASON: bite injury PROCEDURE: HAND LEFT 3V Left hand 3 views. HISTORY: Bite injury 3 views were taken of the left hand. There is soft tissue swelling on the dorsum of the hand and wrist. There is no acute fracture. There is no opaque foreign body. IMPRESSION: 1. Soft tissue swelling. 2. No acute fracture. Electronically signed by: Chris Duarte MD (11/28/2020 10:13 AM) [facility] DICTATED and SIGNED BY: CHRIS DUARTE MD DATE: 11/28/20 [id number] 0 [] Course & Med Decision Making: Course & Med Decision Making Discussed return precautions for worsening infection. Discussed rabies prophylaxis. 0 cases domestic rabies to be reported for [facility] where patient lives. Patient is concerned about cost of the rabies vaccines. Patient feels fairly certain that the cat is around enough that should be able to be caught and observed. Discussed she can return if she changes her mind. Urine culture report animal control. Dragon Disclaimer: Tiffany Disclaimer: This electronic medical record was generated, in whole or in part, using a voice recognition dictation system. Departure Departure Impression: Primary Impression: Cat bite of left hand Disposition: 01 HOME / SELF CARE / HOMELESS Condition: STABLE Referrals: JONATHON LADD MD (PCP) Patient Instructions: Animal Bite Scripts Clindamycin Hcl (CLINDAMYCIN HCL) 300 Mg Capsule 3 CAP PO TID for antibiotic for 7 Days, #63 CAP Prov: NAVEED LOAIZA MD 11/28/20 Ciprofloxacin Hcl (CIPROFLOXACIN HCL) 500 Mg Tablet 1 TAB PO BID for antibiotic, #14 TAB Prov: NAVEED LOAIZA MD 11/28/20 NAVEED LOAIZA MD Nov 28, 2020 09:44
[2020-11-28] MEDS ORDERED: DIPH,PERTUSS(ACELL),TET VAC/PF 0.5 ML SYRINGE. VAX IM ONE (10:00)
[2020-11-28] MEDS ORDERED: CIPROFLOXACIN HCL 250 MG TABLET. PO ONE (10:00)
[2020-11-28] MEDS ORDERED: CLINDAMYCIN HCL 150 MG CAPSULE. PO ONE (10:00)
[2020-11-28] MEDS ORDERED: CIPR500T2 PO (10:11)
[2020-11-28] MEDS ORDERED: CLIN300C9 PO (10:11)
--- NOTE | 2020-11-28 10:15 | RAD ---
Left hand 3 views. HISTORY: Bite injury 3 views were taken of the left hand. There is soft tissue swelling on the dorsum of the hand and wris t. There is no acute fracture. There is no opaque foreign body. IMPRESSION: 1. Soft tissue swelling. 2. No acute fracture. Electronically signed by: Chris Duarte MD (11/28/2020 10:13 AM) [facility]
[2020-11-28 10:31] VITALS: BP 124/75
== END 2020-11-28 10:38 | disposition home or self-care (01) ==
LOC: ER 09:16
DX: S61.452A Open bite of left hand, initial encounter (principal); J45.909 Unspecified asthma, uncomplicated; E11.9 Type 2 diabetes mellitus without complications; I10 Essential (primary) hypertension; E03.9 Hypothyroidism, unspecified; W55.01XA Bitten by cat, initial encounter; Y93.89 Activity, other specified; Y92.89 Other specified places as the place of occurrence of the external cause; Y99.8 Other external cause status
CPT/HCPCS: 73130; 90471; 90715; 99283-25

== ENCOUNTER 2021-09-13 12:07 | Emergency (ER) | payer OTHER ==
[~2021-09-13] VITALS: Ht 167.6 cm; Wt 99.5 kg
[~2021-09-13 12:07] MED LIST changes: +CIPR500T2 PO; +CLIN-94 PO
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
[2021-09-13 14:00] VITALS: BP 136/84
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
== END 2021-09-13 14:00 | disposition home or self-care (01) ==
LOC: ER 12:07
DX: R51.9 Headache, unspecified (principal); M54.9 Dorsalgia, unspecified; M54.2 Cervicalgia; G89.11 Acute pain due to trauma; V49.49XA Driver injured in collision with other motor vehicles in traffic accident, initial encounter; Y93.89 Activity, other specified; Y92.488 Other paved roadways as the place of occurrence of the external cause; Y99.8 Other external cause status
CPT/HCPCS: 70450; 72125; 99284-25